=== PATIENT | male | born 1950 | race Caucasian/White ===

== ENCOUNTER 2016-05-16 07:23 | Inpatient (IN) | payer BC ==
--- NOTE | 2016-05-10 18:08 | HP ---
PREOPERATIVE HISTORY AND PHYSICAL: DATE OF ADMISSION/SURGERY: 05/16/16 DATE OF OFFICE VISIT: 05/10/16 ATTENDING SURGEON: Dr. Laurie Dupont. PROCEDURE: Right total knee replacement. CHIEF COMPLAINT: Right knee pain. HISTORY OF PRESENT ILLNESS: Mr. Sterling is a 66-year-old male, who presents to the clinic for ongoin g right knee pain due to severe right knee osteoarthritis. The patient has failed conservative lupillo ures and therefore has agreed to undergo a right total knee replacement with Dr. Dupont on 05/16/16. PAST MEDICAL HISTORY: Hypertension, high cholesterol, sleep apnea, history of carpal tunnel, and re current cellulitis/staph infection of the skin. PAST SURGICAL HISTORY: Bilateral carpal tunnel release and nasal septoplasty. The patient denies p rior history with issues with anesthesia. MEDICATIONS: 1. Mobic 15 mg 1 tab by mouth daily. 2. Amlodipine besylate 10 mg 1 by mouth daily. 3. Simvastatin 20 mg 1 by mouth daily. 4. Lisinopril 40 mg 1 by mouth daily. 5. Fluticasone propionate 50 mcg per ACT 2 sprays each nostril as needed. 6. Fish oil 1200 mg twice a day. 7. Vitamin C 1000 mg 1 by mouth daily. 8. Potassium gluconate 2.5 mEq 1 by mouth daily. ALLERGIES: No known drug allergies. FAMILY HISTORY: Denies. SOCIAL HISTORY: The patient lives with his . He is a former smoker, quit 7- 1/2 weeks ago. Blanco d a history of smoking 1 pack per day x55 years. Denies alcohol use and illegal drug use. REVIEW OF SYSTEMS: General: Negative for fevers, chills, night sweats. No known anesthesia proble ms. MARTINEZENT: Negative for headache, lightheadedness, or syncopal episodes. Integumentary: Negative for abrasions, lesions, or open wounds. He does have a history of boils. Cardiothoracic: Negativ e for chest pain, palpitations, or edema. Positive for hypertension. Pulmonary: Negative for shor tness of breath with exertion, chronic cough, or COPD. GI: Negative for nausea, vomiting, diarrhea , constipation, or GERD. : Negative for nocturia, urinary frequency, urinary urgency, history of UTIs, or kidney problems. Musculoskeletal: Positive for current complaint. Neuro: Negative for p aresthesias, numbness, history of seizures, stroke, or epilepsy. Endocrine: Negative for diabetes o r thyroid issues. Hematologic: Negative for easy bleeding, bruising, anemia, or history of DVT. P ositive for history of nosebleeds. Denies bleeding or clotting disorder. Infectious Disease: Nega tive for history of MRSA, hep C, or HIV. PHYSICAL EXAMINATION GENERAL: Well-developed, well-nourished, 66-year-old man in no acute distress. VITAL SIGNS: Height 74, weight 266, pulse 75, blood pressure 162/93, BMI 34.1. HEENT: Normocephalic, atraumatic. PERRLA. NECK: Supple. Throat clear. PULMONARY: Lungs are clear to auscultation bilaterally. No wheezing, rhonchi, or rales. CARDIO: Regular rate and rhythm. S1, S2. No murmurs, rubs, or gallops. No edema. ABDOMEN: Positive bowel sounds. Soft, nontender. NEURO: Alert and oriented x3. Cranial nerves grossly intact. Sensation is intact to light touch. MUSCULOSKELETAL: Right lower extremity: Skin is intact with no current boils or lesions. Range of motion is 5 to 125 degrees. Patellofemoral crepitus with extension. Tenderness to the medial join t line. Stable MCL and LCL. Full ankle range of motion. +2 dorsalis pedis pulse. Sensation is in tact to light touch distally. DIAGNOSTIC STUDIES: Multiple-view x-rays of the right knee revealed severe bone-on- bone osteoarth ritis with osteophytes and sclerosis. IMPRESSION: Severe right knee osteoarthritis. PLAN: The patient is scheduled to undergo a right total knee replacement with Dr. Dupont on 05/16/16 . He will return to the office 10 to 14 days for postoperative followup and x-rays and suture remov al. A prescription for Percocet was e- prescribed to the patient's pharmacy for postoperative pain management. Colace was sent to use as needed for constipation and Coumadin was sent to the patient' s pharmacy for postoperative DVT prophylaxis. The patient was informed not to take these medication s prior to surgery. He has been cleared by his primary care doctor. ROSANNE MCGUIRE [id number]/[facility] #: [id number]
[~2016-05-16 07:23] MED LIST: Buffered Lidocaine 1% SYR 3ML* 3 ML/SYR SYRINGE INTRADERM ONE; Famotidine IV* 10 MG/ML 2 ML (20 mg) IV ONE; Morphine INJ* 2 MG/ML 1 ML CARPUJECT IV PRN; PROCHLORPERAZINE INJ 5 MG/ML 2 ML VIAL IV PRN; fentaNYL* 50 MCG/ML 2 ML VIAL (100 MCG VIAL) IV PRN; oxyCODONE/Acetamin 5/325 MG* TAB PO PRN
[2016-05-16] MEDS ORDERED: Famotidine IV* 10 MG/ML 2 ML (20 mg) ONE (07:39)
[2016-05-16] MEDS ORDERED: ceFAZolin 2 GM PREMIX (*) 2 GM/50 ML BAG IVPB ONE (07:39)
[2016-05-16] MEDS ORDERED: Midazolam* 1 MG/ML 10 ML VIAL (10 MG) ONE (08:40)
[2016-05-16] MEDS ORDERED: Morphine PF AMP (0.5MG/ML)* 5 MG/10 ML AMP ONE (09:18)
[2016-05-16] MEDS ORDERED: KETAMINE HCL* 50 MG/ML 10 ML VIAL ONE (09:18)
[2016-05-16] MEDS ORDERED: fentaNYL* 50 MCG/ML 2 ML VIAL (100 MCG VIAL) ONE (09:18)
[2016-05-16] MEDS ORDERED: Naloxone* 0.4 MG/ML 1 ML VIAL IV PRN (10:31)
[2016-05-16] MEDS ORDERED: Nalbuphine* 20 MG/ML 1 ML VIAL IV PRN (10:31)
[2016-05-16] MEDS ORDERED: Ondansetron INJ* 2 MG/ML VIAL IV PRN (10:31)
[2016-05-16] MEDS ORDERED: PROCHLORPERAZINE INJ 5 MG/ML 2 ML VIAL IV PRN (10:31)
[2016-05-16] MEDS ORDERED: Ibuprofen TAB* 600 MG PO PRN (10:31)
[2016-05-16] MEDS ORDERED: Dexamethasone IV* 4 MG/ML 1 ML (4 MG) ONE (10:47)
[2016-05-16] MEDS ORDERED: Lidocaine 2% PF * 5 ML VIAL ONE (10:47)
[2016-05-16] MEDS ORDERED: Propofol* 10 MG/ML 20 ML BTL IV PUSH ONE ×2 (10:47→11:37)
[2016-05-16] MEDS ORDERED: Ondansetron INJ* 2 MG/ML VIAL ONE (10:47)
[2016-05-16] MEDS ORDERED: Scopolamine 1.5 mg* PATCH TRANSDERM SCH (11:00)
[2016-05-16] MEDS ORDERED: Scopolamine PATCH Remove* 1 NOTE MISC PATCH OFF SCH (11:00)
[2016-05-16] MEDS ORDERED: Bupivacaine 0.5% SDV PF* 30 ML VIAL ONE (11:19)
[2016-05-16] MEDS ORDERED: Bupivacaine 0.25% SDV* 30 ML ONE (11:19)
[2016-05-16] MEDS ORDERED: Phenylephrine INJ* 10 MG/ML 1 ML VIAL (10 MG) ONE (11:20)
[2016-05-16] MEDS ORDERED: Acetaminophen TAB* 325 MG PO PRN (11:57)
[2016-05-16] MEDS ORDERED: Bisacodyl SUPP* 10 MG SUPP PR PRN (11:57)
[2016-05-16] MEDS ORDERED: Polyethylene Glycol 3350* 17 GM PACKET PO PRN (11:57)
[2016-05-16] MEDS ORDERED: Fluticasone NASAL SPRAY 50MCG* 16 gm SPRAY BTL NASAL PRN (12:02)
[2016-05-16] MEDS ORDERED: Scopolamine 1.5 mg* PATCH ONE (12:51)
--- NOTE | 2016-05-16 13:14 | RAD ---
Indication: Post RIGHT total knee replacement. Comparison: February 13, 2016 Technique: Portable AP and cross table lateral views RIGHT knee. Report: Status post total knee replacement. Anterior surgical drain in place. Post-op fluid and gas is seen in the joint space and anterior subcutaneous tissues. Alignment is anatomic. No periprosthetic fracture evident. Vascular calcifications noted. IMPRESSION: Normal post-op appearance following total knee replacement.
[2016-05-16] MEDS: ceFAZolin 1 GM in Dextrose (*) 1 GM/50 ML BAG IVPB SCH (15:50)
--- NOTE | 2016-05-16 16:54 | CONS ---
MEDICAL CONSULTATION REPORT: DATE OF CONSULT: 05/16/16 PRIMARY CARE PROVIDER: Dr. Danielson. REQUESTING PROVIDER: Laurie Dupont MD CONSULTING PROVIDER: ROSANNE Francisco SUPERVISING PHYSICIAN: Pricila Jeter MD CHIEF COMPLAINT: Status post right total knee arthroplasty. HISTORY OF PRESENT ILLNESS: This is a 66-year-old gentleman with a history of hypertension, hyperlipidemia, and obstructive sleep apnea who underwent elective total knee arthroplasty by Dr. Dupont earlier today. The patient was seen by his primary care provider, Dr. Danielson, prior to surgery and no acute concerns were addressed at that time. Preoperative notes as well as labs, EKG, and chest x-ray were reviewed. The patient denies any recent illness preceding surgery. Chronic medical conditions are well controlled with the exception of his obstructive sleep apnea. The patient states that he has been struggling to use his BiPAP machine at home. He finds the mask quite uncomfortable. He had a septoplasty performed in March and has not used his BiPAP since that time. He is agreeable to attempt to use BiPAP during his hospital stay. He has also been working to lose weight at home and is wondering whether it is still necessary to use. Also , of note, the patient quit smoking about 8 weeks ago with the use of Chantix. He has no longer using Chantix and feels that he is doing quite well with his smoking cessation. He does have chronic cough, but denies any dyspnea and does not carry the diagnosis of COPD. No prior hospitalizations or respiratory illnesses. PAST MEDICAL HISTORY: 1. Hypertension. 2. Hyperlipidemia. 3. Obstructive sleep apnea. PAST SURGICAL HISTORY: 1. Carpal tunnel release. 2. Nasal septoplasty. HOME MEDICATIONS: 1. Amlodipine 10 mg p.o. daily. 2. Vitamin C 1000 mg p.o. daily. 3. Aspirin 81 mg p.o. daily. 4. Fluticasone nasal spray 2 sprays in each nostril daily as needed. 5. Lisinopril 40 mg p.o. daily. 6. Meloxicam 15 mg p.o. daily. 7. Fish oil 2 capsules p.o. daily. 8. Potassium gluconate 595 mg p.o. daily. 9. Simvastatin 20 mg p.o. daily. 10. Chantix - the patient states that he has completed this medication. SOCIAL HISTORY: The patient lives at home with his . He is a former smoker , quit approximately 8 weeks ago. He has a 14-tjap-nlvw smoking history. Denies any regular alcohol consumption. REVIEW OF SYSTEMS: The patient states that he was doing quite well postoperatively. Denies chest pain, shortness of breath, palpitations, abdominal pain, nausea, or vomiting. PHYSICAL EXAM: Recent Vitals: Temperature 96.8 degrees Fahrenheit, pulse 63 beats per minute, respiratory rate 18 per minute, oxygen saturation 98% on 2 L, blood pressure of 133/79 mmHg. General: This is a very pleasant gentleman who appears slightly older than his stated age lying comfortably in the recovery area accompanied by his and is in no acute distress. HEENT: Head is normocephalic, atraumatic. Mucous membranes are pink and moist. Cardiovascular : Heart has a regular rate and rhythm without murmurs, rubs, or gallops. Respiratory: Lungs are clear to auscultation without wheezes, crackles, or rhonchi. Abdomen: Soft and nontender to palpation. Extremities: No significant edema. Distal pulses are intact. Skin: Limited exam shows no concerning rashes or lesions. Psych: The patient is alert and appropriately oriented. LABORATORY EVALUATION: Preop labs from 05/10/16 were reviewed. CBC is within normal limits. Preop hemoglobin 14.5 g/dL. Comprehensive metabolic panel is unremarkable. Preop creatinine of 0.84. Urinalysis was unremarkable. DIAGNOSTIC STUDIES/IMAGING: Preop EKG shows a sinus rhythm with occasional PVCs. Chest x-ray shows a mild hyperinflation, but no acute process. ASSESSMENT AND PLAN: This is a 66-year-old gentleman with hypertension, hyperlipidemia, and obstructive sleep apnea who underwent elective right total knee arthroplasty by Dr. Dupont earlier today. Hospitalists group has been asked to consult for medical co-management during his hospital stay. 1. Status post right total knee arthroplasty - surgical management per Dr. Dupont and Orthopedic Surgery team including pain management, discharge planning , and DVT prophylaxis. 2. Hypertension - plan to continue amlodipine, but hold lisinopril in the immediate postoperative period. Perhaps can resume postop day 2. He is currently normotensive. 3. Hyperlipidemia: Continue statin. 4. Obstructive sleep apnea - the patient has been noncompliant with BiPAP at home, but is agreeable to utilize BiPAP here in the hospital and that has been ordered for . 5. Code status: The patient is full code. 6. Health care proxy: His . 7. DVT prophylaxis: Per Orthopedic Surgery, it appears that enoxaparin 40 mg subcu daily and Coumadin has been ordered for the patient. DISPOSITION: Hospitalist group will continue to follow along with the patient for medical co-management during his hospital stay. Discharge planning per Orthopedic Surgery. ROSANNE FRANCISCO CC: Dr. John* [id number]/[facility] #: [id number] [place]
[2016-05-16] MEDS ORDERED: Warfarin TAB(*) 4 MG PO ONE (17:00)
--- NOTE | 2016-05-16 18:04 | PN ---
Hospitalist Progress Note HOSPITALIST ADDENDUM Case reviewed and d/w Chaitanya LAY. Mr. Sterling is a 66yo M with PMH of HTN, DAMARIS, admitted for an elective right total knee arthroplasty. Agree with current management. Hospitalist service will continue to follow with you.
[2016-05-16] MEDS: oxyCODONE/Acetamin 5/325 MG* TAB PO PRN ×2 (18:16→22:07)
[2016-05-16] MEDS: Magnesium Hydroxide LIQ* 30 ML UDC PO SCH (20:15)
[2016-05-16] MEDS: Docusate CAP* 100 MG PO SCH (20:15)
[2016-05-17] MEDS: ceFAZolin 1 GM in Dextrose (*) 1 GM/50 ML BAG IVPB SCH ×2 (00:47→08:51)
[2016-05-17] MEDS ORDERED: oxyCODONE/Acetamin 5/325 MG* TAB PO PRN (01:30)
[2016-05-17] MEDS ORDERED: Ondansetron INJ* 2 MG/ML VIAL IV PRN (01:30)
[2016-05-17] MEDS ORDERED: Ondansetron TAB* 4 MG PO PRN (01:30)
[2016-05-17] MEDS ORDERED: diPHENhydraMINE IV* 50 MG/ML 1 ml VIAL (BENADRYL) IV PRN (01:30)
[2016-05-17] MEDS: oxyCODONE/Acetamin 5/325 MG* TAB PO PRN ×2 (02:19→06:07)
[2016-05-17 06:58] LABS: Hematocrit 33 % (42-52); Hemoglobin 11.3 g/dl (14.0-18.0)
[2016-05-17 07:10] LABS: BUN/Creatinine Ratio 21.7 (8-20); Calcium 8.4 mg/dL (8.6-10.3); EGFR African American 106.2 (>60); EGFR Non-African American 82.6 (>60); Potassium 4.5 mmol/L (3.5-5.0)
--- NOTE | 2016-05-17 07:23 | OP ---
DATE OF OPERATION: 05/16/16 - ROOM #346 DATE OF : 52 SURGEON: Laurie Dupont MD ANESTHESIOLOGIST: Dr. Urbina. ANESTHESIA: Spinal with adductor nerve block. PRE-OP DIAGNOSIS: Severe end-stage degenerative osteoarthritis of the right knee joint. POST-OP DIAGNOSIS: Severe end-stage degenerative osteoarthritis of the right knee joint. OPERATIVE PROCEDURE: Right total knee arthroplasty. INDICATIONS: Mr. Sterling is a 66-year-old gentleman with years of increasingly severe right knee pain. He failed conservative treatment with antiinflammatories, pain medication, intraarticular injections, physical therapy , and activity modification. The patient continued to have severe pain. Radiographs confirmed severe arthritis of the right knee joint, with bone-on- bone contact. He elected to undergo right total knee arthroplasty due to continued pain and decreased quality of life. Informed consent was obtained from the patient. He understood the risks of the procedure included but were not limited to bleeding, infection, damage to nearby structures, continued pain, need for further surgery, intraoperative fracture, nerve palsy, hardware failure or loosening, stroke, heart attack, blood clot, and . He wished to proceed. TOURNIQUET TIME: 66 minutes. COMPLICATIONS: None. ESTIMATED BLOOD LOSS: 200 cc. SPECIMENS: Bone and cartilage from the right knee joint sent to Pathology. INTRAOPERATIVE FINDINGS: Intraoperatively, the patient was noted to have severe end-stage arthritis. He had complete loss of cartilage in all three compartments. 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 He had large partially calcified anterior prepatellar bursa which was excised. HARDWARE USED: This was [employer] total knee hardware. For the femur, a size 7 right Oxinium femoral component posterior stabilized. For the tibia, size 6 right tibial baseplate. An 11-mm posterior stabilized articular insert and a 35-mm 3-peg All-Poly patella. DESCRIPTION OF PROCEDURE: Mr. Sterling was identified in the preanesthesia unit. His right lower extremity was marked as the correct operative side. Informed consent was signed and placed in the chart. The patient was taken to the operative room and placed under spinal anesthesia with an adductor block. Lund catheter was placed. Tourniquet was placed on the right side. Right lower extremity was prepped and draped in the usual sterile fashion. Preop time -out was made to correctly identified the patient's side and site. Appropriate perioperative antibiotics were given within 1 hour of incision. Tourniquet was inflated until the tourniquet time for this procedure was 66 minutes. A 14-cm midline skin incision was made with the skin knife and carried down to the extensor mechanism. A large fibrous partially calcified prepatellar bursa was encountered and this was excised with electrocautery. A 10 blade was used to perform medial parapatellar arthrotomy and the patella was subluxed laterally. All three compartments had loss of cartilage and severe arthritis. There was a large amount of clear yellow joint fluid. Next, electrocautery was used to subperiosteally elevate soft tissue off the superomedial tibia to the mid sagittal plane. The knee was flexed up. The anterior horn of the lateral meniscus and ACL was sharply released. A drill was used to enter the distal femur. 3- degree intramedullary distal femoral cutting block was pinned into proper position. An oscillating saw was used to make appropriate distal femoral cut. Lateral femoral hypoplasia was noted and accounted for. Next, an external rotation guide was pinned on the distal femur. The distal femur was sized to a size 7. A size 7 multi-cutting block was pinned on the distal femur. Oscillating saw was used to make the appropriate 4-chamfer cuts. Any bony fragments were carefully removed. The PCL was completely released and the tibia was subluxed anteriorly. Extramedullary proximal tibial cutting guide was chosen and pinned on the proximal tibia. The oscillating saw was used to make a proximal tibial cut perpendicular to the mechanical axis of the tibia. The bone was carefully removed. The knee was brought out into full extension. A spacer block had excellent fit with full extension of the knee. There was good medial and lateral ligamentous balancing. There was good flexion and extension gap balancing. The knee was flexed up. Lamina solutions analyst was placed both medially and laterally. Any remaining meniscus was carefully removed with electrocautery. Curved osteotome was used to remove any osteophytes from the posterior femoral condyles. Tibial tray and drop freya once again confirmed a satisfactory tibial cut. Size 7 right distal femoral trial was chosen and impacted on to the distal femur. This had excellent fit. The box for the posterior stabilized implant was prepared using a reamer and box-cut osteotome. A size 6 tibial tray trial was chosen with an 11-mm insert trial. The knee was taken through a range motion and noted to be stable in all positions. Full extension to 130 degrees of flexion with good patellofemoral tracking. The patella was everted. 9 mm of patellar bone and cartilage was carefully removed with an oscillating saw. This patella was sized to a size 35. The 3 peg holes were drilled through the size 35 guide. A trial 35 patella was placed and the knee was taken through a range of motion. There was excellent patellofemoral tracking. All trials were carefully removed. The tibia was subluxed anteriorly and sized to a size 6. Proximal tibial bone was prepared using a size 6 keel punch. All bony prominences were copiously irrigated with sterile saline and dried. Final implants were cemented into place, starting with tibia, followed by the femur, and lastly the patella. Size 11 insert trial was chosen. This was placed and the knee was brought out into full extension while the cement cured. Tourniquet was turned down at 66 minutes. The knee was copiously irrigated. Once the cement was fully cured, the insert trial was removed. Capsule was checked for any bleeding and electrocautery was used to obtain meticulous hemostasis. Any excess cement was carefully removed. Final insert chosen was an 11-mm posterior stabilized articular insert size 5- 6. This was locked into position on the tibial tray without difficulty. Stability of the insert on the tibial tray was checked and rechecked and noted to be stable. Final range of motion was full extension to 130 degrees of flexion with good patellofemoral tracking. The knee was copiously irrigated with sterile saline. The extensor mechanism was closed using interrupted #1 Vicryls over a medium Hemovac drain. The rest of the incision was closed in a layered fashion using 0 and 2-0 Vicryls. Skin was closed using running 3-0 nylon suture. Sterile Xeroform, 4x4's, and Webril were used to cover the incision. Sujit wrap and cold packs were placed over this. The patient's anesthesia was reversed without difficulty. He was taken to the PACU in stable condition. Intended weightbearing will be weightbearing as tolerated. Intended DVT prophylaxis will be Coumadin with a Lovenox bridge. [id number]/[facility] #: [id number] [facility]
[2016-05-17] MEDS: Vitamin THERAPEUTIC TAB PO SCH (08:51)
[2016-05-17] MEDS: amLODIPine TAB* 5 MG PO SCH (08:51)
[2016-05-17] MEDS: Docusate CAP* 100 MG PO SCH ×2 (08:51→21:41)
[2016-05-17] MEDS: Magnesium Hydroxide LIQ* 30 ML UDC PO SCH ×2 (08:51→21:41)
[2016-05-17] MEDS ORDERED: LISINOPRIL PO SCH (09:00)
--- NOTE | 2016-05-17 11:48 | PN ---
Progress Note - Progress Note SOAP: Subjective: [66 y/o male s/p R TKA 05/16/2016. Patient reports feeling well, pain controlled with po pain medication, ambulatory to bathroom with minimal difficulty this AM. NO questions/ concerns. ] Objective: [General- Well appearing, sitting in chair comfortably MSK- Surgical dressing intact, mild swelling LE R leg, PT 2+ b/l, + dorsiflexion/ plantarflexion b/l le's. sensation intact to light touch. Active Medications Generic Name Dose Route Start Last Admin Trade Name Freq PRN Reason Stop Dose Admin Acetaminophen 650 mg 05/16/16 11:57 Tylenol Tab* PO Q4H PRN pain, fever Amlodipine Besylate 10 mg 05/17/16 09:00 05/17/16 08:51 Norvasc Tab* PO 10 mg DAILY KIANNA Administration Bisacodyl 10 mg 05/16/16 11:57 Dulcolax Supp* NJ DAILY PRN constipation Diphenhydramine HCl 12.5 mg 05/17/16 01:30 Benadryl Iv* IV Q6H PRN PRURITIS Docusate Sodium 100 mg 05/16/16 21:00 05/17/16 08:51 Colace Cap* PO 100 mg BID KIANNA Administration Enoxaparin Sodium 40 mg 05/17/16 12:00 Lovenox(*) SUBCUT Q24H KIANNA Fluticasone Propionate 2 spray 05/16/16 12:02 Flonase Nasal Hammond 50mcg* NASAL DAILY PRN STUFFINESS Lactated Ringer's 1,000 mls @ 100 mls/hr 05/16/16 12:00 05/17/16 02:23 Lactated Ringers 1000 Ml Bag* IV 100 mls/hr PER RATE KIANNA Administration Ibuprofen 600 mg 05/16/16 10:31 Motrin Tab* PO 05/20/16 04:32 Q6H PRN PAIN Lactulose 30 ml 05/16/16 11:57 Lactulose* PO Q6H PRN constipation Magnesium Hydroxide 30 ml 05/16/16 21:00 05/17/16 08:51 Milk Of Magnesia Liq* PO 30 ml BID KIANNA Administration Morphine Sulfate 4 mg 05/17/16 01:30 Morphine Inj (Syringe)* IV Q2H PRN PAIN - BREAKTHROUGH Multivitamins 1 tab 05/17/16 09:00 05/17/16 08:51 Theragran Tab* PO 1 tab DAILY KIANNA Administration Ondansetron HCl 4 mg 05/17/16 01:30 Zofran Inj* IV Q6H PRN nausea Ondansetron HCl 4 mg 05/17/16 01:30 Zofran Tab* PO Q6H PRN NAUSEA Oxycodone HCl 10 mg 05/17/16 01:30 Roxycodone Tab* PO Q4H PRN PAIN - BREAKTHROUGH Oxycodone/Acetaminophen 1 tab 05/17/16 01:30 Percocet 5/325 Tab* PO Q4H PRN PAIN Oxycodone/Acetaminophen 2 tab 05/17/16 01:30 05/17/16 06:07 Percocet 5/325 Tab* PO 2 tab Q4H PRN Administration PAIN - MILD Pharmacy Profile Note 1 note 05/16/16 11:00 Scopolomine Patch Remove* PATCH OFF 05/19/16 10:33 .AFTER 72 HOURS KIANNA Pharmacy Profile Note 1 note 05/16/16 17:00 05/16/16 18:19 Coumadin Daily Reminder* FOLLOW UP 1 note 1700 KIANNA Administration Polyethylene Glycol/Electrolytes 17 gm 05/16/16 11:57 Miralax* PO DAILY PRN Constipation Warfarin Sodium 8 mg 05/17/16 17:00 Coumadin Tab(*) PO 05/17/16 17:01 ONCE@1700 ONE Protocol Vital Signs Temp 97.7 F 05/17/16 07:32 Pulse 69 05/17/16 07:32 Resp 16 05/17/16 08:07 BP 151/85 05/17/16 07:32 Pulse Ox 99 05/17/16 07:32 Intake & Output 05/16/16 05/17/16 05/17/16 18:59 06:59 18:59 Intake Total 3890 1732 Output Total 400 1050 Balance 3490 682 Weight 257 lb Intake: IV Fluids 2450 1306 LR 2450 1306 IVPB 306 Cefazolin 55 LR 251 Oral 1440 120 Output: Lund 400 1050 Laboratory Results - last 24 hr 05/17/16 05/17/16 05/17/16 06:22 06:22 06:22 Hgb 11.3 L Hct 33 L INR (Anticoag Therapy) 0.98 Sodium 134 Potassium 4.5 Chloride 102 Carbon Dioxide 27 Anion Gap 5 BUN 20 Creatinine 0.92 Est GFR ( Amer) 106.2 Est GFR (Non-Af Amer) 82.6 BUN/Creatinine Ratio 21.7 H Glucose 117 H Calcium 8.4 L ] Assessment: [66 y/o male s/p R TKA 05/16/2016] Plan: [- DVT prophylaxis- Continue coumadin, continue lovenox until theraputic - Continue PT/ OT - Continue pein regimen ]
[2016-05-17] MEDS ORDERED: HYDROcodone/ACETAMIN 5-325 MG* 1 TAB PO PRN (12:25)
[2016-05-17] MEDS: Enoxaparin(*) 40 MG/0.4 ML SYR SUBCUT SCH (12:33)
[2016-05-17] MEDS: HYDROcodone/ACETAMIN 5-325 MG* 1 TAB PO PRN (13:07)
--- NOTE | 2016-05-17 14:18 | PN ---
Progress Note - Progress Note Note: Anesthesia Duramorph followup. The pt did well pain-appiah yesterday. No ROSADO, no N/ V. Today he did develope some itching. This was after some percocets that I had ordered. It would be rather late to be from the duramorph. VSS, neuro OK. s/p THR continue oral meds (he's been changed from the percocets)
--- NOTE | 2016-05-17 14:39 | PN ---
Subjective Date of Service: 05/17/16 Interval History: Mr. Sterling states that he is feeling well today. He reports doing well during therapy today and sitting up in the chair for a couple of hours. He denies chest pain, SOB, nausea, or abdominal pain. Objective Active Medications: Acetaminophen (Tylenol Tab*) 650 mg PO Q4H PRN Acetaminophen/Hydrocodone Bitart ([place] 5-325 Tab*) 1 tab PO Q4H PRN Acetaminophen/Hydrocodone Bitart ([place] 5-325 Tab*) 2 tab PO Q4H PRN Amlodipine Besylate (Norvasc Tab*) 10 mg PO DAILY KIANNA Bisacodyl (Dulcolax Supp*) 10 mg CO DAILY PRN Diphenhydramine HCl (Benadryl Iv*) 12.5 mg IV Q6H PRN Docusate Sodium (Colace Cap*) 100 mg PO BID KIANNA Enoxaparin Sodium (Lovenox(*)) 40 mg SUBCUT Q24H KIANNA Fluticasone Propionate (Flonase Nasal [place] 50mcg*) 2 spray NASAL DAILY PRN Lactated Ringer's (Lactated Ringers 1000 Ml Bag*) 1,000 mls @ 100 mls/hr IV PER RATE KIANNA Ibuprofen (Motrin Tab*) 600 mg PO Q6H PRN Lactulose (Lactulose*) 30 ml PO Q6H PRN Magnesium Hydroxide (Milk Of Magnesia Liq*) 30 ml PO BID KIANNA Morphine Sulfate (Morphine Inj (Syringe)*) 4 mg IV Q2H PRN Multivitamins (Theragran Tab*) 1 tab PO DAILY KIANNA Ondansetron HCl (Zofran Inj*) 4 mg IV Q6H PRN Ondansetron HCl (Zofran Tab*) 4 mg PO Q6H PRN Oxycodone HCl (Roxycodone Tab*) 10 mg PO Q4H PRN Pharmacy Profile Note (Scopolomine Patch Remove*) 1 note PATCH OFF .AFTER 72 HOURS KIANNA Pharmacy Profile Note (Coumadin Daily Reminder*) 1 note FOLLOW UP 1700 [facility] Polyethylene Glycol/Electrolytes (Miralax*) 17 gm PO DAILY PRN Warfarin Sodium (Coumadin Tab(*)) 8 mg PO ONCE@1700 ONE Vital Signs 05/16/16 05/16/16 05/16/16 14:51 15:00 15:50 Temperature 97.9 F 97.9 F 97.7 F Pulse Rate 68 68 77 Respiratory 16 16 24 Rate Blood Pressure 131/81 131/81 134/80 (mmHg) O2 Sat by Pulse 100 94 98 Oximetry 05/16/16 05/16/16 05/16/16 16:23 16:30 16:45 Temperature 97.9 F Pulse Rate 75 Respiratory 16 17 24 Rate Blood Pressure 121/77 (mmHg) O2 Sat by Pulse 94 95 Oximetry 05/16/16 05/16/16 05/16/16 18:00 18:16 18:49 Temperature 99.3 F Pulse Rate 81 Respiratory 17 16 22 Rate Blood Pressure 125/77 (mmHg) O2 Sat by Pulse 95 98 Oximetry 05/16/16 05/16/16 05/16/16 19:47 20:16 20:42 Temperature 99.2 F Pulse Rate 72 Respiratory 20 21 22 Rate Blood Pressure 124/75 (mmHg) O2 Sat by Pulse 97 Oximetry 05/16/16 05/16/16 05/17/16 22:07 23:58 00:00 Temperature 98.2 F Pulse Rate 64 Respiratory 22 16 23 Rate Blood Pressure 114/70 (mmHg) O2 Sat by Pulse 97 96 Oximetry 05/17/16 05/17/16 05/17/16 00:07 02:00 02:19 Temperature Pulse Rate Respiratory 22 22 22 Rate Blood Pressure (mmHg) O2 Sat by Pulse Oximetry 05/17/16 05/17/16 05/17/16 03:18 04:19 06:07 Temperature 98.2 F Pulse Rate 61 Respiratory 16 22 20 Rate Blood Pressure 113/71 (mmHg) O2 Sat by Pulse 99 Oximetry 05/17/16 05/17/16 05/17/16 07:32 08:00 08:07 Temperature 97.7 F Pulse Rate 69 Respiratory 18 16 16 Rate Blood Pressure 151/85 (mmHg) O2 Sat by Pulse 99 Oximetry 05/17/16 05/17/16 05/17/16 12:30 12:31 13:07 Temperature 98.1 F Pulse Rate 74 Respiratory 16 18 16 Rate Blood Pressure 181/90 (mmHg) O2 Sat by Pulse 96 Oximetry 05/17/16 05/17/16 13:17 13:29 Temperature Pulse Rate 76 Respiratory 16 16 Rate Blood Pressure 174/77 (mmHg) O2 Sat by Pulse Oximetry Oxygen Devices in Use Now: None Appearance: Male lying in bed in NAD Respiratory: Symmetrical Chest Expansion and Respiratory Effort, Clear to Auscultation Cardiovascular: NL Sounds; No Murmurs; No JVD, No Edema Abdominal: NL Sounds; No Tenderness; No Distention Extremities: No Edema Skin: No Rash or Ulcers Neurological: Alert and Oriented x 3, NL Muscle Strength and Tone Nutrition: Taking PO's Result Diagrams: 05/17/16 06:22 05/17/16 06:22 Assess/Plan/Problems-Billing Assessment: Mr. Sterling is a 66 yo male with a PMH of DAMARIS and HTN who was admitted on 05/16/16 for a right total knee arthroplasty. - Patient Problems (1) Status post right knee replacement Comment: POD # 1. Management per ortho. Pain meds prn with bowel regimen. PT/ OT consulted. Monitor H/H. (2) Hypertension Comment: SBP 180. Resume lisinopril, continue amlodipine. (3) DAMARIS (obstructive sleep apnea) Comment: Bipap ordered but patient does not tolerate it. (4) DVT prophylaxis Comment: Warfarin per ortho. (5) Full code status Status and Disposition: Inpatient with disposition per ortho.
[2016-05-17] MEDS ORDERED: Lisinopril TAB* 10 MG PO ONE (15:00)
[2016-05-17] MEDS: oxyCODONE TAB* 5 MG TAB PO PRN ×3 (15:01→23:42)
[2016-05-17] MEDS ORDERED: Warfarin TAB(*) 4 MG PO ONE (17:00)
[2016-05-17] MEDS: Morphine INJ* 4 MG/ML 1 ML CARPUJECT IV PRN (23:42)
[2016-05-18] MEDS: Morphine INJ* 4 MG/ML 1 ML CARPUJECT IV PRN ×4 (03:55→19:19)
[2016-05-18] MEDS: oxyCODONE TAB* 5 MG TAB PO PRN (03:56)
[2016-05-18 07:35] LABS: Hematocrit 32 % (42-52); Mean Platelet Volume 8 um3 (7.4-10.4)
[2016-05-18] MEDS: amLODIPine TAB* 5 MG PO SCH (07:59)
[2016-05-18] MEDS: Vitamin THERAPEUTIC TAB PO SCH (07:59)
[2016-05-18] MEDS: Magnesium Hydroxide LIQ* 30 ML UDC PO SCH (07:59)
[2016-05-18] MEDS: HYDROcodone/ACETAMIN 5-325 MG* 1 TAB PO PRN ×3 (07:59→23:10)
[2016-05-18] MEDS: Docusate CAP* 100 MG PO SCH ×2 (07:59→19:32)
[2016-05-18] MEDS: Lisinopril TAB* 10 MG PO SCH (08:00)
--- NOTE | 2016-05-18 09:30 | PN ---
Progress Note - Progress Note SOAP: Subjective: [Patient doing well overall. Had some increase in pain last night - Has needed some IV morphine for breakthrough pain. Doing well with PT - ambulating with walker. Denies CP, SOB, calf pain, nausea, dizziness.] Objective: [A and O x 3. NAD. Working with therapist upon my entry to room R knee dressing changed. Surgical incision looks good. Skin edges well- approximated. No erythema. Scant bloody drainage distally. Calf soft, NT. Distal NV function and gross motor intact. Vital Signs: Temp Pulse Resp BP Pulse Ox 98.4 F 78 16 161/82 96 05/18/16 07:44 05/18/16 07:44 05/18/16 08:34 05/18/16 07:44 05/18/16 07:44 Laboratory Results - last 24 hr 05/18/16 05/18/16 07:18 07:18 Hgb 11.0 L Hct 32 L Plt Count 190 MPV 8 INR (Anticoag Therapy) 1.14 H ] Assessment: [66 you male s/p R TKA POD #2] Plan: [Con't PT/OT - WBAT R LE Coumadin and Lovenox for DVT prophylaxis. 8 mg Coumadin tonight Pain management Plan for D/C home tomorrow]
--- NOTE | 2016-05-18 11:43 | PN ---
Subjective Date of Service: 05/18/16 Interval History: Mr. Sterling had difficulty with pain control overnight but is feeling much better this morning. He denies chest pain, SOB, nausea, or abdominal pain. Objective Active Medications: Acetaminophen (Tylenol Tab*) 650 mg PO Q4H PRN Acetaminophen/Hydrocodone Bitart ([place] 5-325 Tab*) 1 tab PO Q4H PRN Acetaminophen/Hydrocodone Bitart ([place] 5-325 Tab*) 2 tab PO Q4H PRN Amlodipine Besylate (Norvasc Tab*) 10 mg PO DAILY KIANNA Bisacodyl (Dulcolax Supp*) 10 mg IN DAILY PRN Diphenhydramine HCl (Benadryl Iv*) 12.5 mg IV Q6H PRN Docusate Sodium (Colace Cap*) 100 mg PO BID KIANNA Enoxaparin Sodium (Lovenox(*)) 40 mg SUBCUT Q24H KIANNA Fluticasone Propionate (Flonase Nasal [place] 50mcg*) 2 spray NASAL DAILY PRN Ibuprofen (Motrin Tab*) 600 mg PO Q6H PRN Lactulose (Lactulose*) 30 ml PO Q6H PRN Lisinopril (Prinivil Tab*) 40 mg PO DAILY KIANNA Magnesium Hydroxide (Milk Of Magnesia Liq*) 30 ml PO BID KIANNA Morphine Sulfate (Morphine Inj (Syringe)*) 4 mg IV Q2H PRN Morphine Sulfate (Ms Contin(*)) 30 mg PO Q12H KIANNA Multivitamins (Theragran Tab*) 1 tab PO DAILY KIANNA Ondansetron HCl (Zofran Inj*) 4 mg IV Q6H PRN Ondansetron HCl (Zofran Tab*) 4 mg PO Q6H PRN Oxycodone HCl (Roxycodone Tab*) 10 mg PO Q4H PRN Pharmacy Profile Note (Scopolomine Patch Remove*) 1 note PATCH OFF .AFTER 72 HOURS [facility] Pharmacy Profile Note (Coumadin Daily Reminder*) 1 note FOLLOW UP 1700 [facility] Polyethylene Glycol/Electrolytes (Miralax*) 17 gm PO DAILY PRN Warfarin Sodium (Coumadin Tab(*)) 8 mg PO ONCE@1700 ONE Vital Signs 05/17/16 05/17/16 05/17/16 12:30 12:31 13:07 Temperature 98.1 F Pulse Rate 74 Respiratory 16 18 16 Rate Blood Pressure 181/90 (mmHg) O2 Sat by Pulse 96 Oximetry 05/17/16 05/17/16 05/17/16 13:17 13:29 15:01 Temperature Pulse Rate 76 Respiratory 16 16 18 Rate Blood Pressure 174/77 (mmHg) O2 Sat by Pulse Oximetry 05/17/16 05/17/16 05/17/16 15:07 15:43 17:01 Temperature 98.9 F Pulse Rate 82 Respiratory 16 16 16 Rate Blood Pressure 150/79 (mmHg) O2 Sat by Pulse 97 Oximetry 05/17/16 05/17/16 05/17/16 19:33 19:37 19:50 Temperature 99.0 F Pulse Rate 82 Respiratory 16 16 16 Rate Blood Pressure 154/78 (mmHg) O2 Sat by Pulse 95 Oximetry 05/17/16 05/17/16 05/17/16 21:33 23:24 23:42 Temperature 99.2 F Pulse Rate 85 Respiratory 16 16 18 Rate Blood Pressure 160/73 (mmHg) O2 Sat by Pulse 93 Oximetry 05/18/16 05/18/16 05/18/16 00:42 01:42 03:41 Temperature 98.4 F Pulse Rate 82 Respiratory 16 16 16 Rate Blood Pressure 155/95 (mmHg) O2 Sat by Pulse 97 Oximetry 05/18/16 05/18/16 05/18/16 03:55 03:56 04:02 Temperature Pulse Rate 82 Respiratory 18 16 Rate Blood Pressure 145/73 (mmHg) O2 Sat by Pulse Oximetry 05/18/16 05/18/16 05/18/16 04:55 05:56 07:44 Temperature 98.4 F Pulse Rate 78 Respiratory 16 18 18 Rate Blood Pressure 161/82 (mmHg) O2 Sat by Pulse 96 Oximetry 05/18/16 05/18/16 05/18/16 07:59 08:00 08:34 Temperature Pulse Rate Respiratory 16 16 16 Rate Blood Pressure (mmHg) O2 Sat by Pulse Oximetry 05/18/16 05/18/16 09:34 09:59 Temperature Pulse Rate Respiratory 15 15 Rate Blood Pressure (mmHg) O2 Sat by Pulse Oximetry Oxygen Devices in Use Now: None Appearance: Male sitting up in chair in NAD Respiratory: Symmetrical Chest Expansion and Respiratory Effort, Clear to Auscultation Cardiovascular: NL Sounds; No Murmurs; No JVD, No Edema Abdominal: NL Sounds; No Tenderness; No Distention Extremities: No Edema Skin: No Rash or Ulcers Neurological: Alert and Oriented x 3, NL Muscle Strength and Tone Nutrition: Taking PO's Result Diagrams: 05/18/16 07:18 05/17/16 06:22 Assess/Plan/Problems-Billing Assessment: Mr. Sterling is a 66 yo male with a PMH of DAMARIS and HTN who was admitted on 05/16/16 for a right total knee arthroplasty. - Patient Problems (1) Status post right knee replacement Comment: POD # 2. Management per ortho. Pain meds prn with bowel regimen. PT/ OT consulted. Monitor H/H, stable. (2) Hypertension Comment: SBP 150-160. Continue lisinopril and amlodipine. Question if elevation partly related to pain, continue to monitor. (3) DAMARIS (obstructive sleep apnea) Comment: Bipap ordered but patient does not tolerate it. (4) DVT prophylaxis Comment: Warfarin per ortho. (5) Full code status Status and Disposition: Inpatient with disposition per ortho.
[2016-05-18] MEDS: Morphine TAB Extended Release (*) 30 MG TAB.ER PO SCH ×2 (12:40→23:09)
[2016-05-18] MEDS: Enoxaparin(*) 40 MG/0.4 ML SYR SUBCUT SCH (12:41)
[2016-05-18] MEDS ORDERED: Warfarin TAB(*) 4 MG PO ONE (17:00)
[2016-05-18] MEDS ORDERED: Magnesium Hydroxide LIQ* 30 ML UDC PO PRN (19:14)
[2016-05-19] MEDS: HYDROcodone/ACETAMIN 5-325 MG* 1 TAB PO PRN ×2 (04:01→08:04)
[2016-05-19] MEDS: Lisinopril TAB* 10 MG PO SCH (08:02)
[2016-05-19] MEDS: Vitamin THERAPEUTIC TAB PO SCH (08:03)
[2016-05-19] MEDS: Docusate CAP* 100 MG PO SCH (08:03)
[2016-05-19] MEDS: amLODIPine TAB* 5 MG PO SCH (08:04)
[2016-05-19 08:15] LABS: Hematocrit 31 % (42-52); Hemoglobin 10.6 g/dl (14.0-18.0)
[2016-05-19 08:45] VITALS: BP 138/79
--- NOTE | 2016-05-19 09:30 | PN ---
Progress Note - Progress Note SOAP: Subjective: [Pt reports pain to be 7/10 - has just finished PT session. Pain is managed with po meds. Denies CP/ SOB/nausea. Feels ready to go home.] Objective: [A and O x 3 NAD R knee dressing C/D/I. Calf soft/NT. Distal NV function, gross motor intact. Vital Signs: Temp Pulse Resp BP Pulse Ox 97.4 F 72 18 138/79 97 05/19/16 08:07 05/19/16 08:07 05/19/16 08:09 05/19/16 08:07 05/19/16 08:07 Laboratory Results - last 24 hr 05/19/16 05/19/16 07:45 07:45 Hgb 10.6 L Hct 31 L INR (Anticoag Therapy) 1.37 H ] Assessment: [s/p R TKA POD #3] Plan: [D/C pt home with services WBAT R LE Percocet and po morphine for pain management Coumadin 8 mg today F/U with Dr. Dupont in 2 weeks.]
[2016-05-19] MEDS: Morphine TAB Extended Release (*) 30 MG TAB.ER PO SCH (11:09)
--- NOTE | 2016-05-19 23:32 | DS ---
DISCHARGE SUMMARY: DATE OF ADMISSION: 05/16/16 DATE OF DISCHARGE: 05/19/16 ADMITTING PHYSICIAN: Dr. Dupont. ADMITTING DIAGNOSES: 1. Right knee osteoarthritis. 2. Hypertension. 3. Hypercholesterolemia. 4. Sleep apnea. DISCHARGE DIAGNOSES: 1. Status post right total knee arthroplasty. 2. Hypertension. 3. Hypercholesterolemia. 4. Sleep apnea. CONSULTANTS: Physical therapy and Occupational Therapy. BRIEF HISTORY: Mr. Sterling is a 66-year-old male with severe degenerative osteoarthritis of his right knee. He failed conservative treatment measures and elected to undergo a right total knee arthroplasty on 05/16/[address] Dupont. HOSPITAL COURSE: Mr. Sterling was admitted to [facility] on 05/16/16. He underwent an uncomplicated right total knee arthroplasty. Postoperatively , he recovered on the short-stay surgical unit. His [place] catheter was removed on postoperative day 1 and he was able to urinate on his own. Postoperative day #2, he was able to have a bowel movement. He advanced to a regular diet without difficulty. His pain was well controlled with Percocet and morphine. He was restarted on home medication. His vital signs and labs remained stable. He was able to bear weight as tolerated on the right lower extremity. He advanced appropriately with physical therapy and occupational therapy. His DVT prophylaxis was bridged with Lovenox and Coumadin until he reached therapeutic INR range. By postoperative day #3, he was orthopedically and medically stable for discharge home with services. PHYSICAL EXAMINATION: General: On examination, the patient is noted to be calm and cooperative, in no acute distress. He is alert and oriented x3. Vital signs on day of discharge: Temperature 97.4 degrees Fahrenheit, pulse rate 72, O2 saturation 97% on room air, blood pressure 138/79. Extremities: Examination of the right lower extremity demonstrates a dressing overlying the right knee, which is clean, dry, and intact. His calf is soft and nontender. Distally, he has a +2 palpable dorsalis pedis pulse and good range of motion at the ankle. Gross strength and neurovascular function is intact. LABORATORY DATA: On day of discharge, hemoglobin 10.6, hematocrit 31. INR 1.37. RADIOGRAPHS: Postoperative radiographs of the right knee demonstrate a right total knee arthroplasty with satisfactory prosthesis placement and no acute bony abnormality. DISCHARGE MEDICATIONS: 1. Amlodipine besylate 10 mg daily. 2. Simvastatin 20 mg daily. 3. Lisinopril 40 mg daily. 4. Fluticasone propionate 60 mcg per ACT 2 sprays each nostril p.r.n. 5. Fish oil 1200 mg twice a day. 6. Vitamin C 1000 mg daily. 7. Potassium gluconate 2.5 mEq 1 daily. 8. Morphine sulfate ER 30 mg b.i.d. p.r.n. pain. 9. Percocet 5/325 one to two tabs q.4 to 6 hours p.r.n. pain. 10. Coumadin 2 mg tablets use as directed. The patient will take 8 mg of Coumadin on the day of discharge. 11. Colace 100 mg p.o. t.i.d. p.r.n. constipation. CONDITION ON DISCHARGE: Stable. DISCHARGE INSTRUCTIONS: Mr. Sterling is a 66-year-old male, postoperative day #3 , status post right total knee arthroplasty, which was uncomplicated. He is orthopedically and medically stable to the discharged home with services. He has stable vital signs and labs. He will restart home medications. He will take 8 mg of Coumadin on Friday night and has his INR rechecked on Friday. He will have INR draws on Mondays and with visiting nurse services. He will remain weightbearing as tolerated on the right lower extremity. He will have home physical therapy twice a day. He will take Percocet for pain control and will take Colace up to 3 times a day for constipation. He will follow up in office with Dr. Dupont in 10 to 14 days for incision check and suture removal. He was instructed to call Dr. Dupont or go immediately to the ER should he develop any new fevers, chills, or incision pain, redness, or drainage. He was instructed to go immediately to the ER should he develop chest pain or shortness of breath. ROSANNE CHOI [id number]/[facility] #: [id number] MTDD
== END 2016-05-19 11:45 | disposition home health service (06) | DRG 302 ==
LOC: AA 07:23 → SSU 14:47
PROVIDERS: ADMIT Orthopaedic Surgery Adult Reconstructive Orthopaedic Surgery; ATTEND Orthopaedic Surgery Adult Reconstructive Orthopaedic Surgery
PROC: 0SRC0J9 Replacement of Right Knee Joint with Synthetic Substitute, Cemented, Open Approach (ICD-10-PCS; principal; 2016-05-16 09:30)
DX: M17.11 Unilateral primary osteoarthritis, right knee (principal); I10 Essential (primary) hypertension; E78.00 Pure hypercholesterolemia, unspecified; G47.33 Obstructive sleep apnea (adult) (pediatric); L29.9 Pruritus, unspecified; E78.5 Hyperlipidemia, unspecified; E66.9 Obesity, unspecified; Z68.33 Body mass index [BMI] 33.0-33.9, adult; Z87.891 Personal history of nicotine dependence; Z91.19 Patient's noncompliance with other medical treatment and regimen; Z79.01 Long term (current) use of anticoagulants
CPT/HCPCS: 36415; 80048; 85014; 85018; 85049; 85610; 88305; 88311; A9270-GY; C1776; J0690; J1100; J1200; J1650; J2250; J2270; J2405; J2704; J3010

== ENCOUNTER 2017-05-15 07:30 | Inpatient (IN) | payer BC ==
--- NOTE | 2017-05-05 20:21 | HP ---
HISTORY AND PHYSICAL: DATE OF SURGERY: 05/15/17 ATTENDING PROVIDER: Dr. Dupont * (DICTATED BY ROSANNE MERCADO) PROCEDURE: Left total knee arthroplasty. CHIEF COMPLAINT: Left knee pain. HISTORY OF PRESENT ILLNESS: Mr. Sterling is a 67-year-old gentleman with continued complaints of left knee pain secondary to end-stage osteoarthritis. He has failed conservative management and elected to proceed with a left total knee arthroplasty which is scheduled for 05/15/[address] Dupont. PAST MEDICAL HISTORY: 1. Hypertension. 2. High cholesterol. 3. Sleep apnea. PAST SURGICAL HISTORY: 1. Bilateral carpal tunnel release. 2. Right total knee arthroplasty. 3. Deviated septum surgery. CURRENT MEDICATIONS: 1. Amlodipine 10 mg daily. 2. Simvastatin 20 mg daily. 3. Lisinopril 40 mg daily. 4. Fluticasone propionate nasal spray as needed. 5. Fish oil. 6. Vitamin C. 7. Potassium 2.5 mEq daily. 8. Aspirin 325 daily. ALLERGIES: None. FAMILY HISTORY: Diabetes and coronary artery disease. SOCIAL HISTORY: He is a 67-year-old gentleman, lives with his . He recently quit smoking. Denies use of drugs, uses alcohol rarely. REVIEW OF SYSTEMS: A complete 14-point review of systems was reviewed with the patient, was all negative. He denies history of DVT, PE, hepatitis C, HIV or anesthesia problems. PHYSICAL EXAMINATION GENERAL: He is well developed, well nourished, no acute distress. VITAL SIGNS: He stands 6 feet 2 inches tall, weighs 260 pounds. His blood pressure is 160/80, his heart rate is 70. HEENT: Normocephalic, atraumatic. NECK: Supple. No palpable lymph nodes. PULMONARY: The lungs are clear to auscultation bilaterally. CARDIO: Regular rate and rhythm. Strong S1, S2. ABDOMEN: Soft, nontender, nondistended. NEUROLOGIC: Alert and oriented x3. Cranial nerves II through XII are intact. MUSCULOSKELETAL: Left lower extremity, the skin is intact. There is no open wounds or abrasions. There is moderate joint effusion, some tenderness over the medial and lateral joint line. No varus or valgus instability. 10 to 120 degrees of flexion with patellofemoral crepitus, 5/5 lower extremity strength, 2 + dorsalis pedis pluses and intact sensation. ASSESSMENT AND PLAN: Mr. Sterling is a 67-year-old gentleman with end-stage osteoarthritis of the left knee. He has failed conservative management and elected to proceed with a left total knee arthroplasty which is scheduled for with Dr. Dupont. Dr. Dupont discussed the risks and benefits of the surgery at today's visit and all of his questions were answered. Coumadin, Colace, and Percocet were sent to his pharmacy for postoperative pain control and DVT prophylaxis. He will see Dr. Dupont back 2 weeks after the surgery. ROSANNE MERCADO [id number]/[facility] #: [id number] MTDD
[~2017-05-15 07:30] MED LIST changes: +Buffered Lidocaine 0.9% SYRIN* 5 ML/SYR SYRINGE INTRADERM ONE; -Buffered Lidocaine 1% SYR 3ML* 3 ML/SYR SYRINGE INTRADERM ONE; +Dexamethasone IV* 4 MG/ML 1 ML (4 MG) IV SLOW PU ONE; +Levalbuterol 0.63MG/3ML NEB* UNIT OF USE INH ONE; -Morphine INJ* 2 MG/ML 1 ML CARPUJECT IV PRN; -PROCHLORPERAZINE INJ 5 MG/ML 2 ML VIAL IV PRN; +Sodium Citrate/Citric Acid* 15 ML UDC PO ONE; -fentaNYL* 50 MCG/ML 2 ML VIAL (100 MCG VIAL) IV PRN; -oxyCODONE/Acetamin 5/325 MG* TAB PO PRN
--- OUTSIDE RECORDS SUMMARY | 2017-05-15 10:09 | XMS REPORT ---
:1950 External Reference #:[id number] Author Organization [facility] Address [address] [address] Phone [phone] Care Team Providers Name Role Phone Chace John MD Primary Care Physician Unavailable Payers Type Date Identification Numbers Payment Provider Subscriber Commercial Policy Number: [id number] [employer] Adore Sterling PayID: [id number] [address] [address] CHRISTINE Hunter [address] Problems Date Description Provider Status Onset: 07/29/2016 Arthroplasty of knee Laurie Dupont M.D. Active Onset: 03/04/2016 Localized, primary osteoarthritis Laurie Dupont M.D. Active Family History Date Family Member(s) Problem(s) Comments General No Current Problems Social History Type Date Description Comments Lives With Occupation [employer] Use Denies alcohol use Smoking Patient is a current smoker, smokes every day Exercise Type/Frequency Does not exercise Allergies, Adverse Reactions, Alerts Date Description Reaction Status Severity Comments 03/04/2016 NKDA active Medications Medication Date Status Form Strength Qnty SIG Indications Ordering Provider Josette 05/19/ Active Caps ER 30mg 4caps 1 tab po bid Laurie 2017 24HR prn pain Korina Dupont Docusate 05/10/ Active Capsules 100mg 60cap Take 1 by M17.0 Laurie Sodium 2017 s mouth three Cresencio, times a day M.D. as needed for constipation Amlodipine 00/ Active Tablets 10mg 1 by mouth Unknown Besylate 0000 every day Simvastatin 00// Active Tablets 20mg 1 by mouth Unknown 0000 every day Lisinopril / Active Tablets 40mg 1 by mouth Unknown 0000 every day Fluticasone / Active Suspension 50mcg/Act 2 sprays each Unknown Propionate 0000 nostril daily as needed Fish Oil / Active Capsules DR 1200mg twice a day Unknown 0000 Vitamin C / Active Tablets 1000mg 1 by mouth Unknown 0000 every day Potassium / Active Tablets 2.5Meq 1 by mouth Unknown Gluconate 0000 every day Aspirin / Active Tablets 325mg 1 by mouth Unknown 0000 every day Penicillin / Active Unknown 0000 Oxycodone HCL 05/25/ Hx Capsules 5mg 90cap one to two Laurie 2017 - s tablets every Cresencio, 07/28/ 6 hours as M.D. 2016 needed for pain MS Contin 05/20/ Hx Tablets ER 30mg 30tab 1 tab po bid Laurie 2016 - s prn pain Cresencio, 07/28/ M.D. 2016 Morphine 05/19/ Hx Caps ER 30mg 20cap 1 tab by Laurie Sulfate ER 2017 - 24HR s mouth twice a Cresencio, Beads day as needed M.D. 2016 for pain Cephalexin 05/16/ Hx Tablets 500mg 20tab 1 by mouth Laurie 2017 - s four times a Cresencio, 03/16/ day for 5 M.D. 2016 days Oxycodone-Sujit 05/10/ Hx Tablets 5-325mg 90tab 1-2 tabs by M17.0 Laurie taminophen 2016 - s mouth every Cresencio, 07/28/ 4-6 hours as M.D. 2016 needed for pain Coumadin 05/10/ Hx Tablets 2mg 60tab take by mouth M17.0 Laurie 2017 - s daily as Cresencio, 03/16/ directed by M.DMerly 2017 doctor. DO Not Take Before Surgery Mobic 03/04/ Hx Tablets 15mg 60tab 1 tablet by M25.561 Laurie 2015 - s mouth qdaily Cresencio, 07/28/ M.D. 2017 Glucosamine / Hx Capsules 1500Com 2 by mouth Unknown Chondroitin 0000 - every day 1500 Complex 2017 Strength Advil / Hx Capsules 200mg as needed Unknown 0000 - 2016 Medications Administered in Office Medication Date Status Form Strength Qnty SIG Indications Ordering Provider Depomedrol Administered Injection Laurie 40MG 017 Korina Dupont Depomedrol Administered Injection Laurie 40MG 016 Korina Dupont Vital Signs Date Vital Result Comment 05/05/2017 Height 74 inches 6'2" Weight 260.00 lb Heart Rate 70 /min BP Systolic 160 mmHg BP Diastolic 80 mmHg Respiratory Rate 20 /min Body Temperature 98.1 F Pain Level 5 BMI (Body Mass Index) 33.4 kg/m2 03/12/2017 Height 74 inches 6'2" Weight 251.00 lb Heart Rate 82 /min Respiratory Rate 14 /min Body Temperature 97.3 F Pain Level 0 BMI (Body Mass Index) 32.2 kg/m2 07/29/2016 Height 74 inches 6'2" Weight 250.00 lb Heart Rate 77 /min BP Systolic 128 mmHg BP Diastolic 80 mmHg Body Temperature 97.9 F Pain Level 2 BMI (Body Mass Index) 32.1 kg/m2 06/14/2016 Height 73.5 inches 6'1.50" Weight 245.00 lb Heart Rate 76 /min BP Systolic 150 mmHg BP Diastolic 83 mmHg Respiratory Rate 16 /min Body Temperature 97.2 F Pain Level 5 BMI (Body Mass Index) 31.9 kg/m2 05/27/2016 Height 73.5 inches 6'1.50" Weight 255.00 lb Heart Rate 90 /min BP Systolic 148 mmHg BP Diastolic 80 mmHg Body Temperature 97.0 F BMI (Body Mass Index) 33.2 kg/m2 05/10/2016 Height 74 inches 6'2" Weight 266.00 lb Heart Rate 75 /min BP Systolic 162 mmHg BP Diastolic 93 mmHg BMI (Body Mass Index) 34.1 kg/m2 03/29/2016 Height 74 inches 6'2" Heart Rate 83 /min BP Systolic 134 mmHg BP Diastolic 85 mmHg 03/04/2016 Height 74 inches 6'2" Weight 255.00 lb Heart Rate 81 /min BP Systolic 147 mmHg BP Diastolic 91 mmHg Respiratory Rate 17 /min Body Temperature 98.2 F Pain Level 8 BMI (Body Mass Index) 32.7 kg/m2 Results Test Date Test Result H/L Range Note Comp Metabolic Panel 05/10/2016 Sodium 135 mmol/L 133-145 1 Potassium 3.9 mmol/L 3.5-5.0 1 Chloride 101 mmol/L 101-111 1 Co2 Carbon Dioxide 28 mmol/L 22-32 1 Anion Gap 6 mmol/L 2-11 1 Glucose 90 mg/dL 70-100 1 Blood Urea Nitrogen 17 mg/dL 6-24 1 Creatinine 0.84 mg/dL 0.67-1.17 1 BUN/Creatinine Ratio 20.2 High 8-20 1 Calcium 9.3 mg/dL 8.6-10.3 1 Total Protein 7.6 g/dL 6.4-8.9 1 Albumin 4.5 g/dL 3.2-5.2 1 Globulin 3.1 g/dL 2-4 1 Albumin/Globulin Ratio 1.5 1-3 1 Total Bilirubin 0.50 mg/dL 0.2-1.0 1 Alkaline Phosphatase 64 U/L 34-104 1 Alt 17 U/L 7-52 1 Ast 16 U/L 13-39 1 Egfr Non- 91.7 >60 1 Egfr 117.9 >60 1, 2 Inr/Protime 05/10/2016 Inr 0.86 Low 0.89-1.11 1 Laboratory test finding 05/10/2016 Partial Thrombo 33.9 seconds 26.0- 36.3 1, 3 Time PTT Urinalysis Profile 05/10/2016 Urine Color Yellow 1 Urine Appearance Clear 1 Urine Specific [place] 1.018 1.010-1.030 1 Urine pH 5.0 5-9 1 Urine Urobilinogen Negative Negative 1 Urine Ketones Trace Negative 1 Urine Protein Negative Negative 1 Urine Leukocytes Negative Negative 1 Urine Blood Negative Negative 1 Urine Nitrite Negative Negative 1 Urine Bilirubin Negative Negative 1 Urine Glucose Negative Negative 1 CBC No Diff 05/10/2016 White Blood Count 7.1 10^3/uL 3.5-10.8 1 Red Blood Count 4.56 10^6/uL 4.0-5.4 1 Hemoglobin 14.5 g/dL 14.0-18.0 1 Hematocrit 42 % 42-52 1 Mean Corpuscular Volume 92 fL 80-94 1 Mean Corpuscular Hemoglobin 32 pg High 27-31 1 Mean Corpuscular HGB Conc 35 g/dL 31-36 1 Red Cell Distribution Width 13 % 10.5-15 1 Platelet Count 239 10^3/uL 150-450 1 Mean Platelet Volume 8 um3 7.4-10.4 1 Type & Screen 05/10/2016 Patient Blood Type O Positive 1 Antibody Screen NEGATIVE 1 Urine Culture And Sensitivities 05/10/2016 Urine Culture SEE RESULT BELOW 1, 4 1 AA 05/16 2 Because ethnic data is not always readily available, this report includes an eGFR for both -Americans and non- Americans. The National Kidney Disease Education Program (NKDEP) does not endorse the use of the MDRD equation for patients that are not between the ages of 18 and 70, are , have extremes of body size, muscle mass, or nutritional status, or are non- or non-. According to the National Kidney Foundation, irrespective of diagnosis, the stage of the disease is based on the level of kidney function: Stage Description GFR(mL/min/1.73 m(2)) 1 Kidney damage with normal or decreased GFR 90 2 Kidney damage with mild decrease in GFR 60-89 3 Moderate decrease in GFR 30-59 4 Severe decrease in GFR 15-29 5 Kidney failure <15 (or dialysis) 3 AA 05/16 4 SEE RESULT BELOW Name: STEPHAN STERLING : [address]: Laurie Dupont MD Acct: [id number] Unit: [id number] AGE: 66 Location: [facility] Re05/10/16 SEX: M Status: REG REF SPEC: [id number] [place]ON[place]: 05/10/16-[address] [facility] [address]: Laurie Dupont MD REQ: [id number] RECD: 05/10/16 STATUS: YOLANDA WU DR: Chace John Jr, MD _ SOURCE: URINE SPDESC: ORDERED: Urine Culture COMMENTS: MARITZA 05/16 QUERIES: Urine Source: Clean Catch Procedure Result Reported Site Urine Culture Final 05/11/161310 ML No Growth (<1,000 CFU/mL) * ML - MAIN LAB (PSC1) . END OF REPORT * ML=Testing performed at Main Lab DEPARTMENT OF PATHOLOGY, [address] [place] [address] Axel Blankenship M.D. Director [facility] # [id number] Procedures Date CPT Code Description Status 03/12/2017 Inject/Drain Joint/Bursa Major Completed 05/16/2016 22376 TKR Total Knee Replacement Completed 03/04/2016 Inject/Drain Joint/Bursa Major Completed Encounters Type Date Location Provider CPT E/M Dx Office Visit 03/12/2017 [facility] Cresencio, M.D. 16102 M25.562 9:30a [facility] M25.462 M17.12 Office Visit 05/18/2016 10:13a [facility] Jenifer Bojorquez, N.P. 00981 Z96.651 Hospitalists I10 G47.33 E78.5 Office Visit 05/17/2016 10:13a [facility] Jenifer Bojorquez, N.P. 31201 Z96.651 Hospitalists I10 G47.33 E78.5 Office Visit 05/16/2016 10[facility] [address] Z96.651 [facility] [place] Hospital[facility] I10 G47.33 E78.5 Office Visit 03/29/2016 9:15a [facility]ie Dupont M.D. 77492 M25.561 [facility] M25.562 M17.0 M25.461 M25.462 Office Visit 03/04/2016 9:30a [facility] Laurie Dupont M.D. 96475 M25.561 [facility] M25.562 M17.0 M25.461 M25.462 Plan of Care Future Appointment(s):05/28/2017 9:45 am - ROSANNE Antoine at [facility]05/15/2017 7:30 am - Gregg Kelly PA-C at [facility]05/15/2017 7:30 am - ROSANNE Antoine at [facility]05/15/2017 7:30 am - Laurie Dupont M.D. at [facility]05/05/2017 - Laurie Dupont M.D.M25.562 Pain in left kneeFollow up:Follow up: 2 weeks after [id number] Effusion, left kneeM17.12 Unilateral primary osteoarthritis, left knee
[2017-05-15] MEDS ORDERED: Dexamethasone IV* 4 MG/ML 1 ML (4 MG) ONE (10:13)
[2017-05-15] MEDS ORDERED: Famotidine IV* 10 MG/ML 2 ML (20 mg) ONE (10:13)
[2017-05-15] MEDS ORDERED: Levalbuterol 1.25MG/0.5ML NEB ONE (10:13)
[2017-05-15] MEDS ORDERED: Buffered Lidocaine 0.9% SYRIN* 5 ML/SYR SYRINGE ONE (10:13)
[2017-05-15] MEDS ORDERED: Sodium Citrate/Citric Acid* 15 ML UDC ONE (10:13)
[2017-05-15] MEDS ORDERED: ceFAZolin 2 GM PREMIX (*) 2 GM/50 ML BAG IVPB ONE (10:13)
[2017-05-15] MEDS ORDERED: Midazolam* 1 MG/ML 2 ML VIAL (2 MG) ONE ×3 (12:05→15:35)
[2017-05-15] MEDS ORDERED: fentaNYL* 50 MCG/ML 2 ML VIAL (100 MCG VIAL) ONE (12:05)
[2017-05-15] MEDS ORDERED: Bupivacaine 0.5% SDV PF* 10-30ML VIAL ONE (12:56)
[2017-05-15] MEDS ORDERED: Lidocaine 2% PF * 5 ML VIAL ONE (12:56)
[2017-05-15] MEDS ORDERED: Propofol* 500 MG/50 ML BTL ONE (12:56)
[2017-05-15] MEDS ORDERED: Acetaminophen IV 1GM/100ML * 1,000 MG/100 ML VIAL IVPB ONE (14:38)
[2017-05-15] MEDS ORDERED: HYDROmorphone INJ* 1 MG/ML CARPUJECT SYRINGE IV PRN (14:38)
[2017-05-15] MEDS ORDERED: Nalbuphine* 20 MG/ML 1 ML VIAL IV PRN ×2 (14:38→14:39)
[2017-05-15] MEDS ORDERED: oxyCODONE TAB* 5 MG TAB PO PRN ×3 (14:38→14:39)
[2017-05-15] MEDS ORDERED: fentaNYL* 50 MCG/ML 2 ML VIAL (100 MCG VIAL) IV PRN (14:38)
[2017-05-15] MEDS ORDERED: Naloxone* 0.4 MG/ML 1 ML VIAL IV PRN (14:38)
[2017-05-15] MEDS ORDERED: Ondansetron INJ* 2 MG/ML VIAL IV PRN ×2 (14:38→14:39)
[2017-05-15] MEDS ORDERED: PROCHLORPERAZINE INJ 5 MG/ML 2 ML VIAL IV PRN (14:39)
[2017-05-15] MEDS ORDERED: oxyCODONE/Acetamin 5/325 MG* TAB PO PRN (14:39)
[2017-05-15] MEDS ORDERED: Acetaminophen TAB* 325 MG PO PRN (14:39)
[2017-05-15] MEDS ORDERED: Ketorolac INJ* 30 MG/ML 1 ML VIAL IV PRN (14:39)
[2017-05-15] MEDS ORDERED: Magnesium Hydroxide LIQ* 30 ML UDC PO PRN (15:11)
[2017-05-15] MEDS ORDERED: Bisacodyl SUPP* 10 MG SUPP PR PRN (15:16)
[2017-05-15] MEDS ORDERED: Propofol* 10 MG/ML 20 ML BTL IV PUSH ONE (15:39)
[2017-05-15] MEDS ORDERED: Ketorolac INJ* 30 MG/ML 1 ML VIAL ONE (15:48)
[2017-05-15] MEDS ORDERED: Ondansetron INJ* 2 MG/ML VIAL ONE (15:48)
--- NOTE | 2017-05-15 17:41 | RAD ---
HISTORY: Status post left knee arthroplasty COMPARISONS: March 12, 2017 VIEWS: 2, Frontal and lateral views of the left knee FINDINGS: BONE DENSITY: Normal. BONES: The patient is status post left knee arthroplasty. There is no hardware failure or osteolysis. JOINTS: The patient is status post left knee arthroplasty. ALIGNMENT: There is no dislocation. SOFT TISSUES: There is post surgical change to the soft tissues. There is peripheral arterial calcification. OTHER FINDINGS: None. IMPRESSION: STATUS POST LEFT KNEE ARTHROPLASTY. PERIPHERAL ARTERIAL DISEASE.
[2017-05-15] MEDS ORDERED: EPHEDrine (Pressors)* 50 MG/ML VIAL IV PUSH PRN (20:21)
[2017-05-15] MEDS: Magnesium Hydroxide LIQ* 30 ML UDC PO SCH (20:45)
[2017-05-15] MEDS: Docusate CAP* 100 MG PO SCH (20:45)
[2017-05-15] MEDS ORDERED: Warfarin TAB(*) 6 MG PO ONE (21:00)
[2017-05-15] MEDS: ceFAZolin 1 GM in Dextrose (*) 1 GM/50 ML BAG IVPB SCH (22:16)
[2017-05-15] MEDS: OBEPIDURAL* 250 ML EPIDURAL SCH (23:41)
[2017-05-16] MEDS ORDERED: Morphine INJ* 2 MG/ML 1 ML CARPUJECT IV PRN (06:00)
[2017-05-16] MEDS ORDERED: diPHENhydraMINE IV* 50 MG/ML 1 ml VIAL (BENADRYL) IV PRN (06:00)
[2017-05-16] MEDS ORDERED: oxyCODONE/Acetamin 5/325 MG* TAB PO PRN (06:00)
[2017-05-16] MEDS ORDERED: Acetaminophen TAB* 325 MG PO PRN (06:00)
[2017-05-16] MEDS: ceFAZolin 1 GM in Dextrose (*) 1 GM/50 ML BAG IVPB SCH ×2 (06:09→14:18)
[2017-05-16 06:11] LABS: Hematocrit 30 % (42-52); Mean Platelet Volume 8 um3 (7.4-10.4); Platelet Count 234 10^3/ul (150-450)
[2017-05-16 06:22] LABS: INR 0.97 (0.77-1.02)
[2017-05-16 06:33] LABS: EGFR Non-African American 76.5 (>60)
--- NOTE | 2017-05-16 08:36 | PN ---
Progress Note - Progress Note Date of Service: 05/16/17 SOAP: Subjective: 67 y/o male s/p L TKA by DR. Horne 05/15/2017. Patient overall feeling well, no complaints/ questions. would like longer acting pain medication as continues to have pain with short acting and did well with long acting last TKA. VSS afebrile overnight. Objective: General- Well appearing, NAD AO, sitting in chair comfortably. MSK- DRessing intact, drain removed by DR. Horne this AM< no complications, + DF /PF, sensation intact, PT2+. Vital Signs Temp 98.9 F 05/16/17 07:53 Pulse 67 05/16/17 07:53 Resp 18 05/16/17 07:53 BP 114/63 05/16/17 07:53 Pulse Ox 95 05/16/17 07:53 Intake & Output 05/15/17 05/16/17 05/16/17 18:59 06:59 18:59 Intake Total 2500 2161 Output Total 750 475 Balance 1750 1686 Weight 115.031 kg Intake: IV Fluids 2500 1006 ABX - CEFAZOLIN 55 LR 2500 951 Oral 1155 Output: Lund 500 475 Estimated Blood Loss 250 Assessment: STable 67 y/o male s/p L TKA by DR. Horne 05/15/2017 Plan: - DVT prophylaxis- continue lovenox, coumadin 8mg tonight - Continue PT/ OT - Follow up within 10-[address] Horne - LIkely D/C to home tomorrow. Active Medications Generic Name Dose Route Start Last Admin Trade Name Freq PRN Reason Stop Dose Admin Acetaminophen 650 mg 05/16/17 06:00 Tylenol Tab* PO Q4H PRN PAIN OR TEMPERATURE Bisacodyl 10 mg 05/15/17 15:16 Dulcolax Supp* SD DAILY PRN constipation Cyclobenzaprine HCl 10 mg 05/15/17 15:16 Flexeril Tab* PO TID PRN SPASMS Diphenhydramine HCl 25 mg 05/16/17 06:00 Benadryl Iv* IV Q6H PRN itching Docusate Sodium 100 mg 05/15/17 21:00 05/15/17 20:45 Colace Cap* PO 100 mg BID KIANNA Administration Enoxaparin Sodium 30 mg 05/16/17 12:00 Lovenox(*) SUBCUT Q24H [facility] Fentanyl/Ropivacaine 250 mls @ 0 mls/hr 05/15/17 15:00 05/15/17 23:41 Fentanyl 2 Mcg/Ml+Ropivacaine 0.1% Epidural* EPIDURAL Not Given Q24H [facility] Protocol Per Protocol Cefazolin Sodium/Dextrose 1 gm in 50 mls @ 200 mls/hr 05/15/17 22:00 06:09 Kefzol 1 Gm In Dextrose Duplex (*) IVPB 05/16/17 14:14 200 mls/hr Q8H KIANNA Administration Lactated Ringer's 1,000 mls @ 100 mls/hr 05/15/17 16:00 05/16/17 05:18 Lactated Ringers 1000 Ml Bag* IV 100 mls/hr PER RATE [facility] Administration Magnesium Hydroxide 30 ml 05/15/17 21:00 05/15/17 20:45 Milk Of Magnesia Liq* PO Not Given BID [facility] Magnesium Hydroxide 30 ml 05/15/17 15:11 Milk Of Magnesia Liq* PO Q6H PRN constipation Morphine Sulfate 2 mg 05/16/17 06:00 Morphine Inj (Syringe)* IV Q2H PRN PAIN - UNCONTROLLED Multivitamins 1 tab 05/16/17 09:00 Theragran Tab* PO DAILY [facility] Oxycodone HCl 10 mg 05/16/17 06:00 Roxycodone Tab* PO Q4H PRN PAIN - SEVERE Oxycodone/Acetaminophen 2 tab 05/16/17 06:00 05/16/17 05:46 Percocet 5/325 Tab* PO 2 tab Q4H PRN Administration PAIN - MODERATE TO SEVERE Oxycodone/Acetaminophen 1 tab 05/16/17 06:00 Percocet 5/325 Tab* PO Q4H PRN PAIN - MODERATE -
[2017-05-16] MEDS: Magnesium Hydroxide LIQ* 30 ML UDC PO SCH ×2 (09:20→20:26)
[2017-05-16] MEDS: Docusate CAP* 100 MG PO SCH ×2 (09:20→20:32)
[2017-05-16] MEDS: Vitamin THERAPEUTIC TAB PO SCH (09:20)
[2017-05-16] MEDS ORDERED: oxyCODONE SR TAB(*) 10 MG TAB.SR PO SCH (10:04)
[2017-05-16] MEDS: oxyCODONE/Acetamin 5/325 MG* TAB PO PRN ×3 (10:31→20:31)
[2017-05-16] MEDS: Enoxaparin(*) 30 MG/0.3 ML SYR SUBCUT SCH (12:53)
[2017-05-16] MEDS: oxyCODONE TAB* 5 MG TAB PO PRN ×3 (12:53→22:36)
[2017-05-16] MEDS: OBEPIDURAL* 250 ML EPIDURAL SCH (13:44)
[2017-05-16] MEDS ORDERED: Warfarin TAB(*) 4 MG PO ONE (17:00)
[2017-05-16] MEDS: Morphine TAB Extended Release (*) 30 MG TAB.ER PO SCH (17:19)
[2017-05-16] MEDS: Atorvastatin* 10 MG TAB PO SCH (20:32)
--- NOTE | 2017-05-16 22:00 | CONS ---
[facility] MEDICINE CONSULTATION REPORT: DATE OF CONSULT: 05/16/17 PROVIDER: Lise Toscano NP ATTENDING PHYSICIAN: Dr. Dupont. CONSULTING PHYSICIAN: Mildred Campbell MD (dictated by Lise Toscano NP) REASON FOR CONSULT: Co-management of chronic medical conditions. HISTORY OF PRESENT ILLNESS: Mr. Sterling is a 67-year-old male patient that presented to the hospital on 05/15/17 for an elective left total knee arthroplasty. In brief, Mr. Sterling had continued complaints of left knee pain secondary to end- stage osteoarthritis who had failed conservative treatment and elected to have a left total knee arthroplasty with Dr. Dupont on 05/15/17. Mr. Sterling carries a history of hypertension, high cholesterol, and sleep apnea. We were asked to consult for management of his hypertension. PAST MEDICAL HISTORY: 1. Hypertension. 2. High cholesterol. 3. Sleep apnea. 4. Osteoarthritis. PAST SURGICAL HISTORY: 1. History of right total knee arthroplasty. 2. Bilateral carpal tunnel release. 3. Deviated septum surgery. OUTPATIENT MEDICATIONS: 1. Amlodipine 10 mg p.o. daily. 2. Simvastatin 20 mg p.o. daily. 3. Lisinopril 80 mg p.o. daily. 4. Fluticasone nasal spray as needed. 5. Fish oil. 6. Vitamin C. 7. Potassium gluconate 2.5 mEq daily. 8. Aspirin 325 mg daily. ALLERGIES: No known drug allergies. FAMILY HISTORY: Father had a history of hypertension. Mother also had a history of hypertension in life. Diabetes, mother and father both late-onset diabetes. There was no cancer documented in the family. SOCIAL HISTORY: The patient is a former smoker. He quit in March 2017. Prior to that, he smoked a pack a day for approximately 50 years. He currently is taking Champix for smoking cessation. Alcohol: He reports rarely partaking in alcohol. Drug use: Denies any drug use. 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 He is and lives with his . She is his surrogate decision maker. Her name is Adore. Her phone number is [phone] in the event Mr. Sterling is unable to make his own medical decisions. REVIEW OF SYSTEMS: General: He denies any fevers, chills, or unintended weight loss. Cardiac: No chest pain or edema. Respiratory: No cough or congestion. No shortness of breath. GI: No nausea, vomiting, diarrhea, or abdominal pain. : Denies any gross hematuria or dysuria. Neuro: No focal weakness or sensory loss. Eyes: No visual complaints. ENT: No dysphagia. Musculoskeletal: No arthralgias or myalgias. Skin: No rashes or lesions. Psych: Denies any depression or anxiety. PHYSICAL EXAMINATION: Vital signs are as follows: Temperature this morning was 98.9, heart rate was 67, respirations were 18, O2 saturation 95%, blood pressure was 114/63. General: Mr. Sterling is sitting in his bed. He is in no acute distress. He complains of mild pain to his left knee. Neuro: He is alert and oriented x3. He moved all extremities equally. HEENT: Extraocular eye movements are intact. Oral mucosa is moist. Heart: S1, S2. No murmurs, rubs, or gallops. Irregular rate and rhythm. Lungs are clear to auscultation bilaterally with no accessory muscle use and good aeration is noted. Abdomen is soft and nontender. Bowel sounds are positive x4. Extremities: No cyanosis or edema. Pedal pulses are +2 bilaterally. Skin is intact. He does have a dressing, dry and intact to his left knee. LABORATORY DATA: Preoperatively, on 05/05/17, his WBCs were 6.4, RBCs were 4.51 , hemoglobin was 11.0, hematocrit was 30, platelet count was 234. INR was 0.97. APTT was 32.6. INR was from 05/16/17. Sodium was 136, potassium was 4.1 , chloride 106, carbon dioxide was 25, BUN was 23, creatinine 0.98, calcium was 8.3, glucose was 128. Urine on 05/05/17, pH was 5.0, specific gravity was 1.015. Urine protein ketones, bloods, nitrites, urine bilirubin, urine leukocyte esterase, and urine glucose were all negative. IMPRESSION AND PLAN: Mr. Sterling is a 67-year-old male with a past medical history significant for hypertension, high cholesterol, and sleep apnea who was admitted to the hospital on 05/15/17 for an elective left total knee replacement. In the immediate postoperative period, he has no complaints except for left knee pain. Our recommendations are as follows: 1. Status post left total knee replacement, management will be per Orthopedics. 2. Hypertension. At this time, Mr. Sterling's blood pressure is soft. I would recommend holding his lisinopril and amlodipine at this time. If his blood pressure is above 150, we can restart it at that time. 3. Hypercholesterolemia. We will continue him on his simvastatin 20 mg p.o. daily. 4. Sleep apnea, stable. The patient currently does not use any BiPAP at home. 5. DVT prophylaxis as per Orthopedics. 6. Code status. He is a full code. 7. Diet. He can continue a heart healthy, low sodium diet. TIME SPENT: Time spent was approximately 45 minutes on this consultation, more than half the time was spent with the patient at the bedside reviewing events leading thus far during his hospitalization, performing a physical exam and reviewing my plan of care. At this time, we will sign off on the patient. In the event that the patient becomes hypertensive, please contact our service. Thank you for allowing us this consultation. This plan of care was discussed with Dr. Mildred Campbell, and she is in agreement with my plan of care. LISE TOSCANO, VASHTI [id number]/[facility] #: [id number] MALENA
[2017-05-17] MEDS: oxyCODONE/Acetamin 5/325 MG* TAB PO PRN ×4 (00:27→13:52)
[2017-05-17] MEDS: oxyCODONE TAB* 5 MG TAB PO PRN ×4 (02:40→21:09)
--- NOTE | 2017-05-17 05:34 | OP ---
OPERATIVE NOTE: DATE OF OPERATION: 05/15/17 DATE OF : 52 ATTENDING SURGEON: Laurie Dupont MD. ASSISTANT MANAGER BILINGUAL: ROSANNE Dale. Ms. Mesa did help throughout the procedure with preparation of the leg, wound retraction, manipul ation of the knee, and wound closure. ANESTHESIOLOGIST: Dr. Laura. ANESTHESIA: Spinal. PRE-OP DIAGNOSIS: Severe end-stage degenerative osteoarthritis of the left knee joint. POST-OP DIAGNOSIS: Severe end-stage degenerative osteoarthritis of the left knee joint. OPERATIVE PROCEDURE: Left total knee arthroplasty. TOURNIQUET TIME: 51 minutes. ESTIMATED BLOOD LOSS: 300 cc. COMPLICATIONS: None. SPECIMENS: Bone and cartilage sent to Pathology, from the left knee joint. BRIEF HISTORY/INDICATION: Mr. Sterling is a 67-year-old gentleman with years of increasingly severe le ft knee pain. Radiograph showed severe end-stage arthritis of the joint with [id number] arthritis. He failed conservative treatment with anti-inflammatories, pain medication, intraarticular injectio ns, and physical therapy. He elected to undergo left total knee arthroplasty due to continued pain a nd decreased quality of life. Informed consent was obtained from the patient. He understood the risks of surgery included, but wer e not limited to, bleeding, infection, damage to nearby structures, continued pain, need for further surgery, intraoperative fracture, nerve palsy, hardware failure or loosening, knee stiffness, loss of motion, stroke, heart attack, blood clot, and . He wished to proceed. INTRAOPERATIVE FINDINGS: Intraoperatively, the patient was noted to have severe end-stage arthritis and tricompartmental loss of cartilage. HARDWARE USED: This was cemented E[employer]hew total knee arthroplasty hardware with two packages of Simplex bone cement. For the femur, a size left 7 posterior stabilized Legion Oxinium component. For the tibia, a left size 7 left tibial base plate Elizabeth II. For the insert, a 9-mm, posterior stabilized articular insert size 7/8. For the patella, a 35-mm 3-peg all-poly patella. DESCRIPTION OF PROCEDURE: Mr. Sterling was identified in the preanesthesia unit. His left lower extrem ity was marked as the correct operative side. Informed consent was signed and placed in the chart. The patient was taken to the operating room and placed under spinal anesthesia. A Lund catheter was placed. Tourniquet was placed on the left thigh. The left lower extremity was prepped and draped i n usual sterile fashion. Preop time-out was made to correctly identify the patient's side and site. Appropriate perioperative antibiotics were given within 1 hour of incision. Tourniquet was inflated and total tourniquet time for this procedure was 51 minutes. A 12-cm midline incision was made with a 10-blade, carried down to the extensor mechanism. A new 10-blade was used to make a standard medial parapatellar arthrotomy. The patella was subluxed laterally. Electrocaute ry was used to subperiosteally elevate the soft tissue off the superomedial tibia to the mid sagittal plane. The knee was flexed up. Anterior horn of the lateral meniscus and ACL were sharply released . A drill was used to enter the distal femur. Intramedullary distal femoral cutting guide was pinned on the distal femur. Oscillating saw was used to make the distal femoral cut. External rotation fan de was pinned on the distal femur. Femur was sized to a size 7. Size 7 multi-cutting jig was pinned on the distal femur and the appropriate 4 chamfer cuts were made. The PCL was completely released. Tibia was subluxed anteriorly. Extramedullary tibial cutting guide was pinned on the proximal tibia. Oscillating saw was used to make a proximal tibial cut perpendicu lar to the mechanical axis of the tibia. The bone was carefully removed. The knee was brought out i nto full extension. Spacer block had good fit. Medial and lateral ligaments were well balanced. Fl exion and extension gaps were well balanced. The knee was flexed up. Lamina patrol deputy sheriff was placed bot h medially and laterally. Any remaining meniscus was removed using electrocautery. Curved osteotome was used to remove any posterior osteophytes. Tibial tray and drop freya once again confirmed the [employer] proximal tibial cut. A size 7 left femoral trial was impacted on to the distal femur and had excellent fit. The box for t he posterior stabilized implant was prepared using a reamer and box cut osteotome. Size 7 tibial tra y trial with a 9-mm insert trial was placed and the knee was taken through a range of motion. The kn ee had full extension to 130 degrees of flexion with satisfactory patellofemoral tracking. The rios la was everted. Then 9-mm of patellar bone and cartilage was carefully removed using an oscillating saw. The patella was sized to a size 35. The three peg holes were drilled with a size 35 guide. A 35 trial patella was placed and the knee was taken through a range of motion. The knee had satisfact ory patellofemoral tracking. All trials were removed. The tibia was subluxed anteriorly and sized to a size 7. Proximal tibia was prepared using a size 7 keel punch. All bony cut surfaces were copiously irrigated and dried. The final implants were cemented into place, starting with the tibia, followed by the femur, and lastly t he patella. A 9-mm insert trial was placed and the knee was brought out into full extension. Tourniq uet was turned down at 51 minutes. The knee was copiously irrigated with sterile saline and dried. Electrocautery was used to obtain meticulous hemostasis. Once the cement had fully cured, the insert trial was removed. Any excess cement was removed from around the capsular flap. Final insert chosen was a 9-mm posterior stabilized articular insert size 7/8. This was locked into position on the tib ial tray. Stability of the insert was checked and rechecked and noted to be stable. The knee was once again copiously irrigated with sterile saline. The extensor mechanism was closed u sing interrupted #1 Vicryl over a medium Hemovac drain. The rest of the incision was closed in a lay ered fashion using 0 and 2-0 Vicryls. Skin was closed using running 3-0 nylon. The incision was cov ered with Xeroform, 4 x 4s, and Webril. Sujit wrap and cold pack were placed over this. The patient's anesthesia was reversed without difficulty. He was taken to the PACU in stable condition. Intended weightbearing will be weightbearing as tolerated. Intended DVT prophylaxis will be Coumadin with Lo venox bridge. [id number]/[facility] #: [id number]
[2017-05-17 05:47] LABS: Hematocrit 29 % (42-52); Hemoglobin 10.1 g/dl (14.0-18.0); Mean Platelet Volume 7 um3 (7.4-10.4); Platelet Count 183 10^3/ul (150-450)
[2017-05-17 06:01] LABS: INR 1.09 (0.77-1.02)
[2017-05-17] MEDS: Morphine TAB Extended Release (*) 30 MG TAB.ER PO SCH ×2 (06:40→17:33)
[2017-05-17] MEDS: Magnesium Hydroxide LIQ* 30 ML UDC PO SCH ×2 (09:46→21:08)
[2017-05-17] MEDS: Vitamin THERAPEUTIC TAB PO SCH (09:48)
[2017-05-17] MEDS: Docusate CAP* 100 MG PO SCH ×2 (09:48→21:09)
[2017-05-17] MEDS: Lisinopril TAB* 10 MG PO SCH (09:55)
[2017-05-17] MEDS: amLODIPine TAB* 5 MG PO SCH (09:58)
--- NOTE | 2017-05-17 09:58 | PN ---
Progress Note - Progress Note Date of Service: 05/17/17 SOAP: Subjective: 67 y/o male s/p R TKA by Dr Dupont 05/15/2017. Patient feeling well, pain moderately controlled with pain medication. VSS, afebrile overnight. Objective: General- Well appearing, NAD, AO MSK- Surgical dressing taken down, insicion c/d/i, no drainage noted, minimal edema, + warmth, tender to moderate touch. mild ecchymosis. DF/PF 2+ b/l, PT 2+, negative homans sign. Vital Signs Temp 98.7 F 05/17/17 04:48 Pulse 87 05/17/17 04:48 Resp 16 05/17/17 06:40 BP 161/75 05/17/17 04:48 Pulse Ox 95 05/17/17 04:48 Intake & Output 05/16/17 05/17/17 05/17/17 18:59 06:59 18:59 Intake Total 2225 2025 560 Output Total 575 1845 300 Balance 1650 180 260 Intake: IV Fluids 775 LR 775 Oral 1450 2025 560 Output: Urine 575 1845 300 Other: Estimated Void Medium # Bowel Movements 0 Assessment: Stable 67 y/o male s/p R TKA by Dr Dupont 05/15/2017 Plan: - DVT prophylaxis- lovenox, coumadin 8mg tonight - Continue PT/ OT - Follow up with Dr. Dupont within 10-14 days post-op - H&H stable - post-op IV ABX - completed. - Unable to receive home PT- patient will stay until Friday due to pain levels , decreased PT function. LIkely home tomorrow. Active Medications Generic Name Dose Route Start Last Admin Trade Name Freq PRN Reason Stop Dose Admin Acetaminophen 650 mg 05/16/17 06:00 Tylenol Tab* PO Q4H PRN PAIN OR TEMPERATURE Amlodipine Besylate 10 mg 05/17/17 09:30 05/17/17 09:58 Norvasc Tab* PO 10 mg QAM KIANNA Administration Atorvastatin Calcium 10 mg 05/16/17 21:00 05/16/17 20:32 Lipitor* PO 10 mg BEDTIME KIANNA Administration Bisacodyl 10 mg 05/15/17 15:16 Dulcolax Supp* [place] DAILY PRN constipation Cyclobenzaprine HCl 10 mg 05/15/17 15:16 Flexeril Tab* PO TID PRN SPASMS Diphenhydramine HCl 25 mg 05/16/17 06:00 Benadryl Iv* IV Q6H PRN itching Docusate Sodium 100 mg 05/15/17 21:00 05/17/17 09:48 Colace Cap* PO 100 mg BID KIANNA Administration Enoxaparin Sodium 30 mg 05/16/17 12:00 05/16/17 12:53 Lovenox(*) SUBCUT 30 mg Q24H KIANNA Administration Lactated Ringer's 1,000 mls @ 100 mls/hr 05/15/17 16:00 05/16/17 05:18 Lactated Ringers 1000 Ml Bag* IV 100 mls/hr PER RATE KIANNA Administration Lisinopril 80 mg 05/17/17 09:30 05/17/17 09:55 Prinivil Tab* PO 80 mg QAM KIANNA Administration Magnesium Hydroxide 30 ml 05/15/17 21:00 05/17/17 09:46 Milk Of Magnesia Liq* PO 30 ml BID KIANNA Administration Magnesium Hydroxide 30 ml 05/15/17 15:11 Milk Of Magnesia Liq* PO Q6H PRN constipation Morphine Sulfate 2 mg 05/16/17 06:00 05/17/17 00:19 Morphine Inj (Syringe)* IV 2 mg Q2H PRN Administration PAIN - UNCONTROLLED Morphine Sulfate 30 mg 05/16/17 18:00 05/17/17 06:40 Ms Contin(*) PO 30 mg Q12H KIANNA Administration Multivitamins 1 tab 05/16/17 09:00 05/17/17 09:48 Theragran Tab* PO 1 tab DAILY KIANNA Administration Oxycodone HCl 10 mg 05/16/17 06:00 05/17/17 06:40 Roxycodone Tab* PO 10 mg Q4H PRN Administration PAIN - SEVERE Oxycodone/Acetaminophen 1 tab 05/16/17 06:00 05/17/17 09:56 Percocet 5/325 Tab* PO 1 tab Q4H PRN Administration PAIN - MODERATE Warfarin Sodium 8 mg 05/17/17 17:00 Coumadin Tab(*) PO 05/17/17 17:01 ONCE@1700 ONE Protocol
[2017-05-17] MEDS: Cyclobenzaprine TAB* 10 MG PO PRN ×2 (10:01→13:50)
[2017-05-17] MEDS: Enoxaparin(*) 30 MG/0.3 ML SYR SUBCUT SCH (13:40)
[2017-05-17] MEDS ORDERED: Warfarin TAB(*) 4 MG PO ONE (17:00)
[2017-05-17] MEDS: Atorvastatin* 10 MG TAB PO SCH (21:09)
[2017-05-18] MEDS: oxyCODONE/Acetamin 5/325 MG* TAB PO PRN (00:59)
[2017-05-18] MEDS: oxyCODONE TAB* 5 MG TAB PO PRN ×3 (03:38→12:25)
[2017-05-18 05:42] LABS: Hematocrit 29 % (42-52); Hemoglobin 10.2 g/dl (14.0-18.0); Mean Platelet Volume 7 um3 (7.4-10.4); Platelet Count 198 10^3/ul (150-450)
[2017-05-18 05:46] LABS: INR 1.48 (0.77-1.02)
[2017-05-18] MEDS: Morphine TAB Extended Release (*) 30 MG TAB.ER PO SCH (06:14)
[2017-05-18] MEDS: Lisinopril TAB* 10 MG PO SCH (08:59)
[2017-05-18] MEDS: Docusate CAP* 100 MG PO SCH (09:00)
[2017-05-18] MEDS: amLODIPine TAB* 5 MG PO SCH (09:00)
[2017-05-18] MEDS: Vitamin THERAPEUTIC TAB PO SCH (09:00)
[2017-05-18] MEDS: Magnesium Hydroxide LIQ* 30 ML UDC PO SCH (09:45)
--- NOTE | 2017-05-18 10:57 | PN ---
Progress Note - Progress Note Date of Service: 05/18/17 SOAP: Subjective: 67 y/o male s/p L TKA by Dr. Dupont. Patient OK with DC today, working well with PT, cleared. No questions/ complaints. VSS, afebrile overnight. Objective: General- Well appearing, NAD, AO MSK- L LE- DF/PF 2+ b/l, PT 2+, negative homans sign. DRessing taken down, incision c/d/i, mild edema, no ecchymosis/ erythema. minimal warmth. Vital Signs Temp 98.8 F 05/18/17 07:58 Pulse 88 05/18/17 07:58 Resp 18 05/18/17 10:36 BP 148/78 05/18/17 07:58 Pulse Ox 95 05/18/17 07:58 Intake & Output 05/17/17 05/18/17 05/18/17 18:59 06:59 18:59 Intake Total 860 500 385 Output Total 500 1450 500 Balance 360 -950 -115 Intake: Oral 860 500 235 Lund [place] Amount 150 Output: Urine 500 1450 500 Other: Estimated Void Medium # Voids 1 Assessment: Stable 67 y/o male s/p L TKA by Dr. Dupont. Plan: - DVT prophylaxis- lovenox, coumadin 6mg tonight - Continue PT/ OT - Follow up with Dr. Dupont within 10-14 days - H&H stable - post-op IV ABX - Completed. Active Medications Generic Name Dose Route Start Last Admin Trade Name Freq PRN Reason Stop Dose Admin Acetaminophen 650 mg 05/16/17 06:00 Tylenol Tab* PO Q4H PRN PAIN OR TEMPERATURE Amlodipine Besylate 10 mg 05/17/17 09:30 05/18/17 09:00 Norvasc Tab* PO 10 mg QAM KIANNA Administration Atorvastatin Calcium 10 mg 05/16/17 21:00 05/17/17 21:09 Lipitor* PO 10 mg BEDTIME KIANNA Administration Bisacodyl 10 mg 05/15/17 15:16 Dulcolax Supp* [place] DAILY PRN constipation Cyclobenzaprine HCl 10 mg 05/15/17 15:16 05/17/17 13:50 Flexeril Tab* PO 10 mg TID PRN Administration SPASMS Diphenhydramine HCl 25 mg 05/16/17 06:00 Benadryl Iv* IV Q6H PRN itching Docusate Sodium 100 mg 05/15/17 21:00 05/18/17 09:00 Colace Cap* PO 100 mg BID KIANNA Administration Enoxaparin Sodium 30 mg 05/16/17 12:00 05/17/17 13:40 Lovenox(*) SUBCUT 30 mg Q24H KIANNA Administration Lactated Ringer's 1,000 mls @ 100 mls/hr 05/15/17 16:00 05/16/17 05:18 Lactated Ringers 1000 Ml Bag* IV 100 mls/hr PER RATE KIANNA Administration Lisinopril 80 mg 05/17/17 09:30 05/18/17 08:59 Prinivil Tab* PO 80 mg QAM KIANNA Administration Magnesium Hydroxide 30 ml 05/15/17 21:00 05/18/17 09:45 Milk Of Magnesia Liq* PO 30 ml BID KIANNA Administration Magnesium Hydroxide 30 ml 05/15/17 15:11 Milk Of Magnesia Liq* PO Q6H PRN constipation Morphine Sulfate 2 mg 05/16/17 06:00 05/17/17 00:19 Morphine Inj (Syringe)* IV 2 mg Q2H PRN Administration PAIN - UNCONTROLLED Morphine Sulfate 30 mg 05/16/17 18:00 05/18/17 06:14 Ms Contin(*) PO 30 mg Q12H KIANNA Administration Multivitamins 1 tab 05/16/17 09:00 05/18/17 09:00 Theragran Tab* PO 1 tab DAILY KIANAN Administration Oxycodone HCl 10 mg 05/16/17 06:00 05/18/17 07:41 Roxycodone Tab* PO 10 mg Q4H PRN Administration PAIN - SEVERE Oxycodone/Acetaminophen 1 tab 05/16/17 06:00 05/18/17 00:59 Percocet 5/325 Tab* PO 1 tab Q4H PRN Administration PAIN - MODERATE
[2017-05-18] MEDS: Enoxaparin(*) 30 MG/0.3 ML SYR SUBCUT SCH (12:25)
[2017-05-18 13:08] VITALS: BP 146/80
== END 2017-05-18 13:40 | disposition home or self-care (01) | DRG 302 ==
LOC: AA 10:02 → SSU 18:42
PROVIDERS: ADMIT Orthopaedic Surgery Adult Reconstructive Orthopaedic Surgery; ATTEND Orthopaedic Surgery Adult Reconstructive Orthopaedic Surgery
PROC: 0SRD069 Replacement of Left Knee Joint with Oxidized Zirconium on Polyethylene Synthetic Substitute, Cemented, Open Approach (ICD-10-PCS; principal; 2017-05-15 13:00)
DX: M17.12 Unilateral primary osteoarthritis, left knee (principal); E78.00 Pure hypercholesterolemia, unspecified; I10 Essential (primary) hypertension; G47.30 Sleep apnea, unspecified; Z96.651 Presence of right artificial knee joint; Z79.82 Long term (current) use of aspirin; Z79.899 Other long term (current) drug therapy; Z83.3 Family history of diabetes mellitus; Z82.49 Family history of ischemic heart disease and other diseases of the circulatory system; Z87.891 Personal history of nicotine dependence; M25.762 Osteophyte, left knee
CPT/HCPCS: 36415; 80048; 85014; 85018; 85049; 85610; A9270-GY; C1776; J0690; J1100; J1650; J1885; J2250; J2270; J2405; J2704; J3010

== ENCOUNTER 2018-01-18 17:00 | Emergency (ER) | payer BC ==
[2018-01-18 17:48] VITALS: BP 143/85
--- NOTE | 2018-01-18 18:12 | UC ---
Respiratory Complaint HPI - HPI Summary HPI Summary: 2-3 WEEKS OF PRODUCTIVE COUGH, SINUS PRESSURE/HEADACHE, GREEN NASAL DISCHARGE AND FATIGUE. NO FEVER, NAUSEA/VOMITING. NO IMPROVEMENT IN SYMPTOMS. DENIES SHORTNESS OF BREATH BUT DOES FEEL WHEEZY AT TIMES. HEAVY SMOKER. - History of Current Complaint Chief Complaint: UCGeneralIllness Stated Complaint: SINUS Time Seen by Provider: 01/18/18 17:45 Hx Obtained From: Patient Onset/Duration: Gradual Onset, Lasting Weeks, Still Present Timing: Constant Severity Initially: Moderate Severity Currently: Moderate Pain Intensity: 8 Pain Scale Used: 0-10 Numeric Character: Cough: Productive Aggravating Factors: Nothing Alleviating Factors: Nothing Associated Signs And Symptoms: Positive: Wheezing, URI, Nasal Congestion, Sinus Discomfort. Negative: Dyspnea, Fever - Allergies/Home Medications Allergies/Adverse Reactions: Allergies Allergy/AdvReac Type Severity Reaction Status Date / Time No Known Allergies Allergy Verified 01/18/18 17:44 PMH/Surg Hx/FS Hx/Imm Hx Cardiovascular History: Hypertension - Surgical History Surgical History: Yes Surgery Procedure, Year, and Place: bilat carpal tunnel release x20 years ago - Family History Known Family History: Positive: Hypertension - Social History Alcohol Use: None Alcohol Amount: holidays Substance Use Type: None Smoking Status (MU): Current Every Day Smoker Amount Used/How Often: ~ 1 ppd Length of Time of Smoking/Using Tobacco: started ~ age 15 When Did the Patient Quit Smoking/Using Tobacco: started chantix 02/2016 - Immunization History Most Recent Influenza Vaccination: 12/2016 Most Recent Tetanus Shot: 2012 Most Recent Pneumonia Vaccination: 2016 Review of Systems Constitutional: Fatigue ENT: Nasal Discharge, Sinus Congestion, Sinus Pain/Tenderness Respiratory: Cough, Other - WHEEZE Cardiovascular: Negative Gastrointestinal: Negative Neurological: Headache All Other Systems Reviewed And Are Negative: Yes Physical Exam Triage Information Reviewed: Yes Appearance: Well-Appearing, No Pain Distress, Well-Nourished Vital Signs: Initial Vital Signs Temp 97.9 F 01/18/18 17:42 Pulse 86 01/18/18 17:42 Resp 18 01/18/18 17:42 BP 143/85 01/18/18 17:42 Pulse Ox 98 01/18/18 17:42 Vital Signs Reviewed: Yes Eyes: Positive: Conjunctiva Clear ENT: Positive: Hearing grossly normal, Pharynx normal, TMs normal Neck: Positive: Supple, Nontender, No Lymphadenopathy Respiratory: Positive: No respiratory distress, No accessory muscle use, Wheezing - WHEEZE AND COARSE BREATH SOUNDS DIFFUSELY RIGHT LUNG. END EXPIRATORY WHEEZE LEFT LUNG Cardiovascular Exam: Normal Abdomen Description: Positive: Soft Musculoskeletal: Positive: No Edema Neurological: Positive: Alert Psychological: Positive: Age Appropriate Behavior Skin: Negative: rashes UC Diagnostic Evaluation - Laboratory O2 Sat by Pulse Oximetry: 98 - Radiology Xray Interpretation: Positive (See Comments) - QUESTIONABLE INCREASED PROMINENCE OF LUNG MARKINGS RIGHT LUNG COMPARED TO 05/05/17 Radiology Interpretation Completed By: ED Physician Respiratory Course/Dx - Differential Dx/Diagnosis Provider Diagnoses: ACUTE BRONCHITIS/SINUSITIS Discharge - Sign-Out/Discharge Documenting (check all that apply): Patient Departure All imaging exams completed and their final reports reviewed: No - Discharge Plan Condition: Stable Disposition: HOME Prescriptions: Doxycycline Monohydrate 1 cap PO BID #19 cap predniSONE TAB* [Deltasone TAB*] 50 mg PO DAILY #4 tab Patient Education Materials: Sinusitis (ED), Acute Bronchitis (ED), Bronchospasm (ED) Referrals: Chace Martinez MD [Primary Care Provider] - If Needed Additional Instructions: YOU HAD SOME COARSE LUNG SOUNDS AND WHEEZING IN YOUR RIGHT LUNG. CHEST XRAY TODAY IS QUESTIONABLE FOR SOME INCREASED LUNG MARKINGS. WILL COVER YOU FOR INFECTIOUS PROCESS WITH DOXYCYCLINE. PREDNISONE FOR AIRWAY INFLAMMATION. FARROWING WORKER RADIOLOGY SERVICE TO READ YOUR FILMS TONIGHT. WE WILL NOTIFY YOU WITH ANY CHANGE IN MANAGEMENT. GO TO ED WITHOUT FAIL IF YOU DEVELOP WORSENING SHORTNESS OF BREATH, FEVER, CHEST PAIN, NAUSEA, SWEATS, DIZZINESS OR ANY OTHER CONCERNING SYMPTOMS. - Billing Disposition and Condition Condition: STABLE Disposition: Home
[2018-01-18] MEDS ORDERED: DOXYcycline CAP(*) 100 MG PO ONE (18:43)
[2018-01-18] MEDS ORDERED: predniSONE TAB* 20 MG PO ONE (18:44)
--- NOTE | 2018-01-18 19:15 | RAD ---
EXAM: XR Chest, 2 Views EXAM DATE/TIME: 01/18/2018 6:11 PM CLINICAL HISTORY: 67 years old, male; Signs and symptoms; Cough; Patient HX: Cough/congestion x 2 months. Worsenging. Smoker. ; Additional info: Cough, coarse sound right lung TECHNIQUE: XR of the chest, 2 views. COMPARISON: DX CXR CHEST PA LAT 2 VWS 05/05/2017 11:47 AM FINDINGS: Lungs: No consolidation or pulmonary edema. Stable mild elevation of left hemidiaphragm. Pleural space: No pleural effusion or pneumothorax. Heart/Mediastinum: Cardiomediastinal contours are normal. No cardiomegaly. Bones/joints: Unremarkable for patient's age. IMPRESSION: No acute findings. To contact [facility] with a general question: [facility] - [phone] For direct physician to physician contact: Physician Hotline - [phone] [facility] ([facility] Facility ID #[id number])
--- NOTE | 2018-01-18 19:24 | UC ---
- Progress Note Progress Note: RADIOLOGY READ REVIEWED. NO ACUTE FINDINGS NOTED. NO CHANGE IN MANAGEMENT. PT NOTIFIED. - ELTON BLANCO MD Discharge - Sign-Out/Discharge Documenting (check all that apply): Post-Discharge Follow Up All imaging exams completed and their final reports reviewed: Yes - Discharge Plan Condition: Stable Disposition: HOME Prescriptions: Doxycycline Monohydrate 1 cap PO BID #19 cap predniSONE TAB* [Deltasone TAB*] 50 mg PO DAILY #4 tab Patient Education Materials: Sinusitis (ED), Acute Bronchitis (ED), Bronchospasm (ED) Referrals: Chace Martinez MD [Primary Care Provider] - If Needed Additional Instructions: YOU HAD SOME COARSE LUNG SOUNDS AND WHEEZING IN YOUR RIGHT LUNG. CHEST XRAY TODAY IS QUESTIONABLE FOR SOME INCREASED LUNG MARKINGS. WILL COVER YOU FOR INFECTIOUS PROCESS WITH DOXYCYCLINE. PREDNISONE FOR AIRWAY INFLAMMATION. NURSE SPECIALIST RADIOLOGY SERVICE TO READ YOUR FILMS TONIGHT. WE WILL NOTIFY YOU WITH ANY CHANGE IN MANAGEMENT. GO TO ED WITHOUT FAIL IF YOU DEVELOP WORSENING SHORTNESS OF BREATH, FEVER, CHEST PAIN, NAUSEA, SWEATS, DIZZINESS OR ANY OTHER CONCERNING SYMPTOMS. - Billing Disposition and Condition Condition: STABLE Disposition: Home
== END 2018-01-18 19:01 | disposition home or self-care (01) ==
LOC: UCCORT 17:00
DX: J20.9 Acute bronchitis, unspecified (principal); J32.9 Chronic sinusitis, unspecified; I10 Essential (primary) hypertension; F17.210 Nicotine dependence, cigarettes, uncomplicated
CPT/HCPCS: 71046; 99212; A9270-GY; G0463; J7512

== ENCOUNTER → 2018-09-21 14:23 | Day surgery (SDC) | payer BC ==
[~2018-09-21 14:23] MED LIST changes: +Acetaminophen TAB* 325 MG PO PRN; -Buffered Lidocaine 0.9% SYRIN* 5 ML/SYR SYRINGE INTRADERM ONE; +Buffered Lidocaine 1% SYRIN* 1 ML/SYRINGE INTRADERM ONE; +Bupivacaine 0.25% SDV PF* 10 ML VIAL INJ ONE; -Dexamethasone IV* 4 MG/ML 1 ML (4 MG) IV SLOW PU ONE; +Dexamethasone IV* 4 MG/ML 1 ML (4 MG) ONE; +DiMENhydriNATE IV* 50 MG/ML VIAL IV PUSH PRN; -Famotidine IV* 10 MG/ML 2 ML (20 mg) IV ONE; +Famotidine IV* 10 MG/ML 2 ML (20 mg) ONE; +HYDROcodone/ACETAMIN 5-325 MG* 1 TAB PO PRN; +Ketorolac INJ* 30 MG/ML 1 ML VIAL ONE; +Lactated Ringers 1000 ML Bag* 1,000 ML IV SCH; -Levalbuterol 0.63MG/3ML NEB* UNIT OF USE INH ONE; +Levalbuterol 1.25MG/0.5ML NEB INH PRN; +Lidocaine 2% PF * 5 ML VIAL ONE; +Metoprolol Tartrate IV* 1 MG/ML 5 ML VIAL ONE; +Midazolam* 1 MG/ML 2 ML VIAL (2 MG) ONE; +Naloxone* 0.4 MG/ML 1 ML VIAL IV PRN; +Ondansetron INJ* 2 MG/ML VIAL IV PRN; +Propofol* 10 MG/ML 20 ML BTL ONE; +Sodium Citrate/Citric Acid* 15 ML UDC ONE; +ceFAZolin 2 GM in NS PREMIX(*) 2 GM/100 ML BAG IVPB ONE; +diPHENhydraMINE IV* 50 MG/ML 1 ml VIAL (BENADRYL) IV PRN; +fentaNYL* 50 MCG/ML 2 ML VIAL (100 MCG VIAL) IV PRN; +fentaNYL* 50 MCG/ML 2 ML VIAL (100 MCG VIAL) ONE
[2018-09-21 22:13] VITALS: BP 128/74
--- NOTE | 2018-09-22 00:11 | OP ---
DATE OF OPERATION: 09/21/18 - [facility] DATE OF : 52 SURGEON: Francisco Gillette MD SURFACE ROOM SHOP OPTICIAN: ROSANNE Santiago ANESTHESIOLOGIST: Dr. Smith. ANESTHESIA: General. PRE-OP DIAGNOSIS: Right displaced distal radius fracture. POST-OP DIAGNOSIS: Right displaced distal radius fracture. OPERATIVE PROCEDURE: Open reduction and internal fixation, right displaced distal radius fracture. INDICATIONS: Gigi has a displaced and translated distal radius fracture. They attempted closed reduction. It was not reduced. We talked about risks and benefits. He wanted to proceed with surgery. ESTIMATED BLOOD LOSS: 10 mL. COMPLICATIONS: None. FINDINGS: See above and below. DESCRIPTION OF PROCEDURE: Gigi was seen in the preoperative holding area. The correct site, side, and procedure were identified. We came back to the operating room where the arm was prepped and draped in the usual fashion. A time-out was performed. The arm was exsanguinated with the Esmarch and the tourniquet was inflated to 250 mmHg. We made a longitudinal incision over the FCR tendon of about 8 to 10 cm. Dissection was carried down, the FCR sheath was opened. The subsheath was opened. The tendon had been retracted ulnarly. The FPL tendon was retracted out of the way. The pronator quadratus was visualized. I released off the radial aspect and T-d it back transversely distally to expose the fracture. The fracture was . There was a dorsal ulnar spike of bone that was impeding the reduction. Ultimately, I hung the arm in 10 pounds of inline traction using the Arthrex hand fuentes. I was then able to provide enough traction that we could get the distal piece of bone around that dorsal spike of bone without having to break off that dorsal spike of bone. Once I did that, it reduced anatomically. I put a pointed reduction clamp on it just across the obliquity of the fracture as it went from proximal ulnar to distal radial and that secured in anatomic reduction. I brought in my Synthes variable angle distal radius plate. This was secured with K-wires. I placed 1 screw in the oblong hole. I checked the plate position, it looked good, but it need to go little more distal, so I loosened the oblong hole and I moved to little more distal and then pinned into place. The plate was secured first distally with a 2.4 mm cortical screw to get plate to bone apposition and the remainder of the hole was refilled with a combination of variable angle and nominal angle locking screws. We then placed two 2.4 mm cortical screws proximally. Final fluoroscopic imaging showed excellent anatomic alignment and good hardware positioning and length of the screws. We irrigated out the wound. The pronator quadratus was reapproximated with 3-0 Vicryl suture. The skin was closed with 3 -0 Monocryl and Steri-Strips. 0.25% plain Marcaine was infiltrated all about the operative area. The wounds are dressed and short arm cock-up wrist splint was applied. He was taken to recovery room in stable condition. [id number]/[facility] #: [id number]
== END | disposition home or self-care (01) ==
LOC: OR 14:23
PROVIDERS: ATTEND Orthopaedic Surgery Hand Surgery
DX: S52.501A Unspecified fracture of the lower end of right radius, initial encounter for closed fracture (principal); I10 Essential (primary) hypertension; E78.00 Pure hypercholesterolemia, unspecified; G47.30 Sleep apnea, unspecified; F17.210 Nicotine dependence, cigarettes, uncomplicated; W11.XXXA Fall on and from ladder, initial encounter; Y93.89 Activity, other specified; Y92.89 Other specified places as the place of occurrence of the external cause
CPT/HCPCS: 76000; A9270-GY; C1713; C1776; J0690; J1100; J1885; J2250; J2704; J3010; J3490